=== PATIENT | male | born 1960 | race Caucasian/White ===

== ENCOUNTER 2018-05-31 12:12 | Inpatient (IN) | payer MEDICAID ==
[2018-05-31] MEDS ORDERED: Sodium Chloride 0.9% 1,000 ML IV STA (13:54)
--- NOTE | 2018-05-31 13:58 | ED PDOC ---
Arrival/HPI - General Chief Complaint: Back Pain Time Seen by Provider: 05/31/18 13:17 Historian: Patient - History of Present Illness Narrative History of Present Illness (Text): 05/31/18 13:58 57 year old male, with no significant past medical history, presents to the emergency department complaining of back pain for the past 5 days. Patient states he took some pain medication which relieved the pain, but it came back and worsened yesterday. He notes secondary abdominal pain and chest discomfort. Patient denies fevers, chills, headache, dizziness, shortness of breath, dyspnea on exertion, cough, nausea, vomiting, diarrhea, neck pain, or any other complaint. PMD: Dr. Lawson Time/Duration: < week Symptom Onset: Gradual Symptom Course: Worsening Activities at Onset: Light Context: Home Past Medical History - Provider Review Nursing Documentation Reviewed: Yes - Infectious Disease Hx of Infectious Diseases: None - Genitourinary/Gynecological Hx Genitourinary Disorders: No - Psychiatric Hx Substance Use: No - Anesthesia Hx Anesthesia: No Hx Anesthesia Reactions: No Hx Malignant Hyperthermia: No Family/Social History - Physician Review Nursing Documentation Reviewed: Yes Family/Social History: No Known Family HX Smoking Status: Never Smoked Hx Alcohol Use: No Hx Substance Use: No Allergies/Home Meds Allergies/Adverse Reactions: Allergies No Known Allergies Allergy (Verified 05/31/18 13:05) Home Medications: Home Meds Medication Instructions Recorded Confirmed No Known Home Med 05/31/18 05/31/18 Review of Systems - Physician Review All systems were reviewed & negative as marked: Yes - Review of Systems Constitutional: absent: Fevers Respiratory: absent: SOB Physical Exam - Physical Exam Narrative Physical Exam (Text): 05/31/18 14:01 Constitutional: No acute distress. Head: Normocephalic. Atraumatic. Eyes: PERRL. ENT: Moist mucous membranes. Neck: Supple. Cardiovascular: Regular rate. Chest: No tenderness. Respiratory: Clear to auscultation bilaterally. GI: Soft. Nontender. Nondistended. Back: No CVA tenderness. no midline tenderness. Musculoskeletal: No tenderness or swelling of extremities. Skin: No rash. Neurologic: Alert, no focal deficit. Vital Signs Reviewed: Yes Vital Signs Temp Pulse Resp BP Pulse Ox 05/31/18 12:59 97.9 F 73 18 165/96 H 98 Temperature: Afebrile Blood Pressure: Hypertensive Pulse: Regular Respiratory Rate: Normal Appearance: Positive for: Well-Appearing, Non-Toxic, Comfortable Pain Distress: None Mental Status: Positive for: Alert and Oriented X 3 Medical Decision Making ED Course and Treatment: 05/31/18 14:02 Impression: 57 year old male who presents to the emergency department complaining of back pain. Plan: -- Abdomen and Pelvis CT -- EKG -- Labs -- IV fluids -- Toradol -- Urine Culture -- Urinalysis -- Reassess and disposition Progress Notes: Pending CT. Signed out to ED night team. - Lab Interpretations I have reviewed the lab results: Yes - RAD Interpretation Radiology Orders: 05/31/18 13:54 ABD & PELVIS IV CONTRAST ONLY [CT] Stat Wind Turbine Engineer: Radiologist - EKG Interpretation Interpreted by ED Physician: Yes Type: 12 lead EKG - Medication Orders Current Medication Orders: Sodium Chloride (Sodium Chloride 0.9%) 1,000 mls @ 999 mls/hr IV .Q1H1M STA Stop: 05/31/18 14:54 Discontinued Medications Ketorolac Tromethamine (Toradol) 30 mg IVP STAT STA Stop: 05/31/18 13:55 - Scribe Statement The provider has reviewed the documentation as recorded by the Sally Joseph Provider Scribe Attestation: All medical record entries made by the Scribe were at my direction and personally dictated by me. I have reviewed the chart and agree that the record accurately reflects my personal performance of the history, physical exam, medical decision making, and the department course for this patient. I have also personally directed, reviewed, and agree with the discharge instructions and disposition. Disposition/Present on Arrival - Present on Arrival Any Indicators Present on Arrival: No History of DVT/PE: No History of Uncontrolled Diabetes: No Urinary Catheter: No History of Decub. Ulcer: No History Surgical Site Infection Following: None - Disposition Have Diagnosis and Disposition been Completed?: No Diagnosis: Abdominal pain Disposition Time: 18:51 Condition: STABLE Forms: [employer] (Romansh)
[2018-05-31 15:02] LABS: URINE BILIRUBIN NEGATIVE (NEGATIVE); URINE BLOOD NEGATIVE (NEGATIVE); URINE GLUCOSE (UA) NEGATIVE (NEGATIVE); URINE LEUKOCYTE ESTERASE NEGATIVE Leu/uL (NEGATIVE); URINE PROTEIN NEGATIVE mg/dL (<30 mg/dL); URINE UROBILINOGEN 0.2 E.U./dL (<1 E.U./dL)
[2018-05-31 15:03] LABS: BASO # 0.03 K/mm3 (0.0-2.0); BASO % 0.3 % (0.0-3.0); EOS # 0.2 (0.0-0.7); EOS % 1.3 % (1.5-5.0); HEMOGLOBIN 16.1 g/dL (14.0-18.0); LYMPH # 1.8 (1.2-3.4); MEAN CELL VOLUME 88.7 fl (80.0-105.0); MEAN CORPUSCULAR HEMOGLOBIN 29.9 pg (25.0-35.0); MEAN CORPUSCULAR HGB CONC 33.8 g/dl (31.0-37.0); MEAN PLATELET VOLUME 11.2 fl (7.0-11.0); MONO # 0.8 (0.1-0.6); MONO % 6.7 % (1.0-6.0); RBC 5.38 10^6/uL (3.5-6.1); RED CELL DISTRIBUTION WIDTH 13.8 % (11.5-14.5); WHITE BLOOD COUNT 11.3 10^3/uL (4.5-11.0)
[2018-05-31 15:04] LABS: URINE APPEARANCE CLEAR (CLEAR); URINE COLOR YELLOW (YELLOW)
[2018-05-31 15:51] LABS: ALB/GLOB RATIO 1.3 (1.1-1.8); ALT/SGPT 23 U/L (7-56); AST/SGOT 23 U/L (17-59); BLOOD UREA NITROGEN 13 mg/dL (7-21); CALCIUM 9.5 mg/dL (8.4-10.5); GFR NON-AFRICAN AMERICAN > 60; LIPASE 54 U/L (23-300)
[2018-05-31 16:02] LABS: TROPONIN I < 0.01 ng/mL
[2018-05-31] MEDS ORDERED: Iohexol 350 MG/100 ML VIAL ONE (17:00)
--- NOTE | 2018-05-31 19:36 | ED PDOC ---
Physical Exam Vital Signs Reviewed: Yes Vital Signs Temp Pulse Resp BP Pulse Ox 05/31/18 14:52 78 18 155/88 H 98 05/31/18 12:59 97.9 F 73 18 165/96 H 98 Temperature: Afebrile Blood Pressure: Normal Pulse: Regular Respiratory Rate: Normal Appearance: Positive for: Well-Appearing, Non-Toxic, Comfortable Pain Distress: None Mental Status: Positive for: Alert and Oriented X 3 - Systems Exam Head: Present: Atraumatic, Normocephalic Pupils: Present: PERRL Extroacular Muscles: Present: EOMI Conjunctiva: Present: Normal Mouth: Present: Moist Mucous Membranes Neck: No: MIDLINE TENDERNESS Respiratory/Chest: Present: Clear to Auscultation, Good Air Exchange. No: Respiratory Distress, Accessory Muscle Use Cardiovascular: Present: Regular Rate and Rhythm, Normal S1, S2. No: Murmurs Abdomen: Present: Tenderness (upper abdomen). No: Distention, Peritoneal Signs Back: Present: Normal Inspection Upper Extremity: Present: Normal Inspection. No: Cyanosis, Edema Lower Extremity: Present: Normal Inspection. No: Edema Neurological: Present: GCS=15, Speech Normal Skin: Present: Warm, Dry, Normal Color. No: Rashes Psychiatric: Present: Alert, Oriented x 3, Normal Insight, Normal Concentration Medical Decision Making ED Course and Treatment: 05/31/18 19:34 Case endorsed to me by for pending CT abd/pelvis, reassessment and final disposition. Patient is a 57 year old male who presented to the emergency department earlier today complaining of back pain. Patient is currently resting in bed in no acute distress. Patient have no new medical complaints. 05/31/18 22:02 CT Abdomen and Pelvis: LUNG BASES: The lung bases appear clear. No pleural effusions are seen. LIVER: There is hepatomegaly. The liver measured an estimated 20.1 cm in the midclavicular line. There is also suggestion of mild associated hepatic steatosis. GALLBLADDER AND BILE DUCTS: There is apparent subtle 2.0 cm partially calcified cholelith within the gallbladder neck region. Additionally, subtle pericholecystic edema is noted. These findings are thought compatible with acute cholecystitis .No biliary ductal dilatation is evident. PANCREAS: Unremarkable. SPLEEN: Unremarkable. ADRENAL GLANDS: Unremarkable. KIDNEYS, URETERS, AND BLADDER: Both kidneys are normal in size and position. A 2.5 cm cyst is seen in the anterior mid right renal pole. There is no hydronephrosis or hydroureter. No urinary calculi are seen. The urinary bladder is normal in size and configuration. STOMACH AND BOWEL: No evidence of bowel obstruction. There is mild mucosal wall thickening and fluid filling of the lumen of the stomach and small intestinal tract thought compatible with gastritis and diffuse enteritis. Infectious or inflammatory etiologies are thought most likely. There is diverticulosis coli seen within the descending, sigmoid and rectosigmoid colon without evidence of acute diverticulitis. APPENDIX: No evidence of acute appendicitis on CT examination. PERITONEUM: No free fluid. No free air. Small bilateral inguinal hernias are present which each contain fat. LYMPH NODES: No lymphadenopathy is evident. REPRODUCTIVE: The seminal vesicles appeared normal and symmetrical in size. There is prostatic hypertrophy noted. The prostate gland measured 5.9 cm transversely. VASCULATURE: No evidence of abdominal aortic aneurysm. Minor atherosclerotic vascular plaquing is present. BONES: No aggressive appearing osseous lesion. No acute osseous pathology evident. IMPRESSION: 1. A solitary 2.0 cm partially calcified cholelith is seen in the gallbladder neck. 2. Pericholecystic edema. Findings compatible with acute cholecystitis. 3. Evidence of gastritis and diffuse enteritis. 4. Hepatomegaly with associated steatosis. 5. Diverticulosis coli of the left hemicolon. No acute diverticulitis. 6. Small bilateral inguinal hernias which each contain fat. 7. Prostatic hypertrophy. Electronically signed on May 31, 2018 9:38:42 PM EST by: Ricardo Quiles M.D., CHUNG Certified By ABR & CBC[employer] Fellowship Trained MRI and CT Specialist 05/31/18 22:09 Case discussed with medical scientific liaison and Dr. Goodman. Pt will be admitted to [facility] for cholecystitis under the hospitalist service. - Lab Interpretations Lab Results: Troponin I < 0.01 ng/mL 05/31/18 15:30 Total Bilirubin 0.4 mg/dL (0.2-1.3) 05/31/18 15:30 AST 23 U/L (17-59) 05/31/18 15:30 ALT 23 U/L (7-56) 05/31/18 15:30 Alkaline Phosphatase 85 U/L (38-126) 05/31/18 15:30 Total Protein 7.2 g/dL (5.8-8.3) 05/31/18 15:30 Albumin 4.0 g/dL (3.0-4.8) 05/31/18 15:30 Globulin 3.2 gm/dL 05/31/18 15:30 Albumin/Globulin Ratio 1.3 (1.1-1.8) 05/31/18 15:30 Lipase 54 U/L (23-300) 05/31/18 15:30 Urine Color Yellow (YELLOW) 05/31/18 14:40 Urine Appearance Clear (CLEAR) 05/31/18 14:40 Urine pH 6.0 (4.7-8.0) 05/31/18 14:40 Ur Specific [place] 1.025 (1.005-1.035) 05/31/18 14:40 Urine Protein Negative mg/dL (<30 mg/dL) 05/31/18 14:40 Urine Glucose (UA) Negative mg/dL (NEGATIVE) 05/31/18 14:40 Urine Ketones Negative mg/dL (NEGATIVE) 05/31/18 14:40 Urine Blood Negative (NEGATIVE) 05/31/18 14:40 Urine Nitrate Negative (NEGATIVE) 05/31/18 14:40 Urine Bilirubin Negative (NEGATIVE) 05/31/18 14:40 Urine Urobilinogen 0.2 E.U./dL (<1 E.U./dL) 05/31/18 14:40 Ur Leukocyte Esterase Negative Андрей/uL (NEGATIVE) 05/31/18 14:40 - RAD Interpretation Radiology Orders: 05/31/18 13:54 ABD & PELVIS IV CONTRAST ONLY [CT] Stat - Medication Orders Current Medication Orders: Discontinued Medications Sodium Chloride (Sodium Chloride 0.9%) 1,000 mls @ 999 mls/hr IV .Q1H1M STA Stop: 05/31/18 14:54 Last Admin: 05/31/18 14:44 Dose: 999 mls/hr eMAR Start Stop Document 05/31/18 14:44 EAR (Rec: 05/31/18 14:45 EAR [id number]) Intravenous Solution Start Date 05/31/18 Start Time 14:44 End Date 05/31/18 End time 15:50 Total Infusion Time 66 Ketorolac Tromethamine (Toradol) 30 mg IVP STAT STA Stop: 05/31/18 13:55 Last Admin: 05/31/18 14:47 Dose: 30 mg MAR Pain Assessment Document 05/31/18 14:47 EAR (Rec: 05/31/18 14:48 EAR [id number]) Pain Reassessment Is this a pain reassessment? Yes IVP Administration Document 05/31/18 14:47 EAR (Rec: 05/31/18 14:48 EAR [id number]) Charges for Administration # of IVP Administrations 1 - Scribe Statement The provider has reviewed the documentation as recorded by the Sally Day training with Dejuan. All medical record entries made by the Sally were at my direction and personally dictated by me. I have reviewed the chart and agree that the record accurately reflects my personal performance of the history, physical exam, medical decision making, and the department course for this patient. I have also personally directed, reviewed, and agree with the discharge instructions and disposition. Disposition/Present on Arrival - Present on Arrival Any Indicators Present on Arrival: No History of DVT/PE: No History of Uncontrolled Diabetes: No Urinary Catheter: No History of Decub. Ulcer: No History Surgical Site Infection Following: None - Disposition Have Diagnosis and Disposition been Completed?: Yes Diagnosis: Abdominal pain, Cholecystitis Disposition: HOSPITALIZED Disposition Time: 22:15 Patient Plan: Admission Patient Problems: Current Active Problems Problem Status Onset Abdominal pain Acute Condition: STABLE Forms: [employer] (Divehi)
[2018-05-31] MEDS ORDERED: metroNIDAZOLE IV 500 mg/100 ml 500 MG/100 ML BAG IV STA (22:02)
[2018-05-31] MEDS ORDERED: cefTRIAXone 1 gm 1 GM/100 ML BAG IV STA (22:02)
[2018-05-31] MEDS ORDERED: Morphine 2 mg/ml ISec IVP STA ×2 (22:09→23:09)
--- NOTE | 2018-05-31 23:59 | CP.PCM.CON ---
History of Present Illness - History of Present Illness History of Present Illness: General Surgery Consult note for Dr. Jordan Consulted for Cholecystitis Patient is a 57 M with no PMH who presents with RUQ pain radiating to back x 5-7 days. Patient otherwise denies any PEOPLES, n/v, f/c, stool changes, chest pain, SOB and dizziness. PMH: denies PSH: appendectomy (in childhood) Social: denies ETOH, smoking and illicit drugs All: nkda Review of Systems - Review of Systems All systems: reviewed and no additional remarkable complaints except (as per HPI) Past Patient History - Infectious Disease Hx of Infectious Diseases: None - Past Social History Smoking Status: Never Smoked - GENITOURINARY/GYNECOLOGICAL Hx Genitourinary Disorders: No - PSYCHIATRIC Hx Substance Use: No - ANESTHESIA Hx Anesthesia: No Hx Anesthesia Reactions: No Hx Malignant Hyperthermia: No Meds Allergies/Adverse Reactions: Allergies Allergy/AdvReac Type Severity Reaction Status Date / Time No Known Allergies Allergy Verified 05/31/18 13:05 - Medications Medications: Current Medications Metronidazole (Flagyl) 500 mg in 100 mls @ 100 mls/hr IVPB Q8 NANCI; Protocol Ceftriaxone Sodium (Rocephin 1 Gram Ivpb) 1 gm in 100 mls @ 100 mls/hr IVPB DAILY NANCI; Protocol Sodium Chloride (Sodium Chloride 0.9%) 1,000 mls @ 100 mls/hr IV .Q10H NANCI Morphine Sulfate (Morphine) 2 mg IVP Q6H PRN PRN Reason: Pain, severe (8-10) Ondansetron HCl (Zofran Inj) 4 mg IVP Q6H PRN PRN Reason: Nausea/Vomiting Pantoprazole Sodium (Protonix Inj) 40 mg IVP DAILY NANCI Physical Exam - Constitutional Appears: Well, Non-toxic, No Acute Distress - Head Exam Head Exam: ATRAUMATIC - Eye Exam Eye Exam: EOMI - ENT Exam ENT Exam: Mucous Membranes Moist - Respiratory Exam Respiratory Exam: NORMAL BREATHING PATTERN - Cardiovascular Exam Cardiovascular Exam: REGULAR RHYTHM - GI/Abdominal Exam GI & Abdominal Exam: Soft, Tenderness (RUQ). absent: Guarding - Extremities Exam Extremities exam: Negative for: calf tenderness - Neurological Exam Neurological exam: Alert, Oriented x3 - Psychiatric Exam Psychiatric exam: Normal Affect, Normal Mood - Skin Skin Exam: Dry, Intact, Normal Color, Warm Results - Vital Signs Recent Vital Signs: Last Vital Signs Temp 97.9 F 05/31/18 12:59 Pulse 78 05/31/18 14:52 Resp 18 05/31/18 14:52 BP 155/88 H 05/31/18 14:52 Pulse Ox 98 05/31/18 14:52 - Labs Result Diagrams: 06/02/18 06:10 06/02/18 06:10 Labs: Laboratory Results - last 24 hr 05/31/18 05/31/18 05/31/18 14:40 14:40 15:30 WBC 11.3 H RBC 5.38 Hgb 16.1 Hct 47.7 MCV 88.7 MCH 29.9 MCHC 33.8 RDW 13.8 Plt Count 258 MPV 11.2 H Neut % (Auto) 75.7 H Lymph % (Auto) 16.0 L [place] % (Auto) 6.7 H Eos % (Auto) 1.3 L Baso % (Auto) 0.3 Lymph # (Auto) 1.8 [place] # (Auto) 0.8 H Eos # (Auto) 0.2 Baso # (Auto) 0.03 Absolute Neuts (auto) 8.52 H Sodium 139 Potassium 4.4 Chloride 106 Carbon Dioxide 26 Anion Gap 12 BUN 13 Creatinine 0.8 Est GFR ( Amer) > 60 Est GFR (Non-Af Amer) > 60 Random Glucose 93 Calcium 9.5 Total Bilirubin 0.4 AST 23 ALT 23 Alkaline Phosphatase 85 Total Creatine Kinase 88 Troponin I < 0.01 Total Protein 7.2 Albumin 4.0 Globulin 3.2 Albumin/Globulin Ratio 1.3 Lipase 54 Urine Color Yellow Urine Appearance Clear Urine pH 6.0 Ur Specific [place] 1.025 Urine Protein Negative Urine Glucose (UA) Negative Urine Ketones Negative Urine Blood Negative Urine Nitrate Negative Urine Bilirubin Negative Urine Urobilinogen 0.2 Ur Leukocyte Esterase Negative Assessment & Plan - Assessment and Plan (Free Text) Assessment: 57 yr old male with cholelithiasis and acute cholecystitis Plan: IVF rocephin, flagyl pain control zofran SCD Abd US possible OR tomorrow for cholecystectomy will discuss with Dr. Julian Lombardo, PGY 1 - Date & Time Date: 06/01/18 Time: 23:35
[2018-06-01] MEDS: Sodium Chloride 0.9% 1,000 ML IV SCH ×2 (01:33→17:56)
--- NOTE | 2018-06-01 02:22 | CP.PCM.HP ---
<SanjeevwillkarlenePancho - Last Filed: 06/01/18 02:33> History of Present Illness - History of Present Illness History of Present Illness: PGY1 Hospitalist History and Physical Exam Note for Dr. Goodman This is a 57 year old Japanese speaking M with PMH of hyperlipidemia who presents [facility] with back pain x5 days. Patient states he took some pain medication which relieved the pain, but it came back and moved towards his chest and then moved towards his abdomen. The pain worsened yesterday. Patient also notes associated nausea, anorexia, and abdominal distention. ROS is otherwise unremarkable for fevers, chills, headache, dizziness, shortness of breath, dyspnea on exertion, cough, nausea, vomiting, diarrhea, neck pain, or any other complaint. PMH: Hyperlipidemia PSH: Appendectomy Family Hx: Father (hx HTN, DM, sudden 2/2 unknown cause); Mother: ; hx HTN Social Hx Denies ETOH. Admits to Tobacco 1/2 pack per day x30 years. No recreational drugs Medications: None Allergies: NKDA PMD: Dr. Lawson Present on Admission - Present on Admission Any Indicators Present on Admission: No History of DVT/PE: No History of Uncontrolled Diabetes: No Urinary Catheter: No Decubitus Ulcer Present: No Review of Systems - Review of Systems All systems: reviewed and no additional remarkable complaints except (as mentioned in HPI) Past Patient History - Infectious Disease Hx of Infectious Diseases: None - Past Social History Smoking Status: Heavy Smoker > 10 Cigarettes Daily - CARDIAC Hx Cardiac Disorders: Yes Hx Hypercholesterolemia: Yes - MUSCULOSKELETAL/RHEUMATOLOGICAL Hx Falls: No - GENITOURINARY/GYNECOLOGICAL Hx Genitourinary Disorders: No - PSYCHIATRIC Hx Substance Use: No - SURGICAL HISTORY Hx Surgeries: Yes Hx Cholecystectomy: Yes - ANESTHESIA Hx Anesthesia: No Hx Anesthesia Reactions: No Hx Malignant Hyperthermia: No Meds Allergies/Adverse Reactions: Allergies Allergy/AdvReac Type Severity Reaction Status Date / Time No Known Allergies Allergy Verified 05/31/18 13:05 Physical Exam - Additional Findings Additional findings: - Constitutional Appears: Well, Non-toxic, No Acute Distress - Head Exam Head Exam: ATRAUMATIC - Eye Exam Eye Exam: EOMI - ENT Exam ENT Exam: Mucous Membranes Moist - Respiratory Exam Respiratory Exam: NORMAL BREATHING PATTERN - Cardiovascular Exam Cardiovascular Exam: REGULAR RHYTHM - GI/Abdominal Exam GI & Abdominal Exam: Soft, Tenderness (RUQ). absent: Guarding - Extremities Exam Extremities exam: Negative for: calf tenderness - Neurological Exam Neurological exam: Alert, Oriented x3 - Psychiatric Exam Psychiatric exam: Normal Affect, Normal Mood - Skin Skin Exam: Dry, Intact, Normal Color, Warm Results - Vital Signs Recent Vital Signs: Last Vital Signs Temp 97.9 F 05/31/18 12:59 Pulse 80 05/31/18 22:30 Resp 20 06/01/18 01:39 BP 132/82 05/31/18 22:30 Pulse Ox 98 05/31/18 22:30 - Labs Result Diagrams: 05/31/18 14:40 05/31/18 15:30 Labs: Laboratory Results - last 24 hr 05/31/18 05/31/18 05/31/18 14:40 14:40 15:30 WBC 11.3 H RBC 5.38 Hgb 16.1 Hct 47.7 MCV 88.7 MCH 29.9 MCHC 33.8 RDW 13.8 Plt Count 258 MPV 11.2 H Neut % (Auto) 75.7 H Lymph % (Auto) 16.0 L [place] % (Auto) 6.7 H Eos % (Auto) 1.3 L Baso % (Auto) 0.3 Lymph # (Auto) 1.8 [place] # (Auto) 0.8 H Eos # (Auto) 0.2 Baso # (Auto) 0.03 Absolute Neuts (auto) 8.52 H Sodium 139 Potassium 4.4 Chloride 106 Carbon Dioxide 26 Anion Gap 12 BUN 13 Creatinine 0.8 Est GFR ( Amer) > 60 Est GFR (Non-Af Amer) > 60 Random Glucose 93 Calcium 9.5 Total Bilirubin 0.4 AST 23 ALT 23 Alkaline Phosphatase 85 Total Creatine Kinase 88 Troponin I < 0.01 Total Protein 7.2 Albumin 4.0 Globulin 3.2 Albumin/Globulin Ratio 1.3 Lipase 54 Urine Color Yellow Urine Appearance Clear Urine pH 6.0 Ur Specific [place] 1.025 Urine Protein Negative Urine Glucose (UA) Negative Urine Ketones Negative Urine Blood Negative Urine Nitrate Negative Urine Bilirubin Negative Urine Urobilinogen 0.2 Ur Leukocyte Esterase Negative Assessment & Plan - Assessment and Plan (Free Text) Assessment: This is a 57 year old Japanese speaking M with PMH of hyperlipidemia who presents to [facility] with back pain x5 days. Patient states he took some pain medication which relieved the pain, but it came back and moved towards his chest and then moved towards his abdomen. Abdominal Pain / Back pain likely secondary to Cholecystitis - CT ABD/PELVIS: IMPRESSION: 1. A solitary 2.0 cm partially calcified cholelith is seen in the gallbladder neck. 2. Pericholecystic edema. Findings compatible with acute cholecystitis. 3. Evidence of gastritis and diffuse enteritis. 4. Hepatomegaly with associated steatosis. 5. Diverticulosis coli of the left hemicolon. No acute diverticulitis. 6. Small bilateral inguinal hernias which each contain fat. 7. Prostatic hypertrophy. - CXR f/u report - EKG obtained unremarkable for T wave abnormalities - Leukocytosis (11.3) - General Surgery (Dr. Jordan) consulted; recommendations appreciated - NPO - Morphine IVP 2mg Q6 PRN for severe pain - Zofran PRN for nausea - IVF NS @100mls/hr - Abx: Rocephin, Flagyl - F/U blood cultures - AM labs (CBC, CMP, Mg, Phos) PPx: - Diet: NPO - GI: Protonix - DVT: SCD Patient seen and case discussed with Dr. Maxine Duncan PGY1 <Cole Goodman - Last Filed: 06/01/18 06:51> Results - Vital Signs Recent Vital Signs: Last Vital Signs Temp 97.9 F 05/31/18 12:59 Pulse 80 05/31/18 22:30 Resp 20 06/01/18 01:39 BP 132/82 05/31/18 22:30 Pulse Ox 98 05/31/18 22:30 - Labs Result Diagrams: 05/31/18 14:40 05/31/18 15:30 Labs: Laboratory Results - last 24 hr 05/31/18 05/31/18 05/31/18 14:40 14:40 15:30 WBC 11.3 H RBC 5.38 Hgb 16.1 Hct 47.7 MCV 88.7 MCH 29.9 MCHC 33.8 RDW 13.8 Plt Count 258 MPV 11.2 H Neut % (Auto) 75.7 H Lymph % (Auto) 16.0 L [place] % (Auto) 6.7 H Eos % (Auto) 1.3 L Baso % (Auto) 0.3 Lymph # (Auto) 1.8 [place] # (Auto) 0.8 H Eos # (Auto) 0.2 Baso # (Auto) 0.03 Absolute Neuts (auto) 8.52 H Sodium 139 Potassium 4.4 Chloride 106 Carbon Dioxide 26 Anion Gap 12 BUN 13 Creatinine 0.8 Est GFR ( Amer) > 60 Est GFR (Non-Af Amer) > 60 Random Glucose 93 Calcium 9.5 Total Bilirubin 0.4 AST 23 ALT 23 Alkaline Phosphatase 85 Total Creatine Kinase 88 Troponin I < 0.01 Total Protein 7.2 Albumin 4.0 Globulin 3.2 Albumin/Globulin Ratio 1.3 Lipase 54 Urine Color Yellow Urine Appearance Clear Urine pH 6.0 Ur Specific [place] 1.025 Urine Protein Negative Urine Glucose (UA) Negative Urine Ketones Negative Urine Blood Negative Urine Nitrate Negative Urine Bilirubin Negative Urine Urobilinogen 0.2 Ur Leukocyte Esterase Negative Attending/Attestation - Attestation I have personally seen and examined this patient.: Yes I have fully participated in the care of the patient.: Yes I have reviewed all pertinent clinical information: Yes Notes (Text): 06/01/18 06:51 Seen and examined. Discussed with resident. Agree with note. Pt. also C/O GERD like symptoms, Protonix will be added.
[2018-06-01] MEDS: metroNIDAZOLE IV 500 mg/100 ml 500 MG/100 ML BAG IVPB SCH ×3 (05:08→21:23)
[2018-06-01 07:22] LABS: BASO # 0.02 K/mm3 (0.0-2.0); BASO % 0.2 % (0.0-3.0); EOS # 0.2 (0.0-0.7); EOS % 1.6 % (1.5-5.0); HEMOGLOBIN 14.3 g/dL (14.0-18.0); LYMPH # 1.7 (1.2-3.4); LYMPH % 17.2 % (22.0-35.0); MEAN CELL VOLUME 87.7 fl (80.0-105.0); MEAN CORPUSCULAR HEMOGLOBIN 28.8 pg (25.0-35.0); MEAN CORPUSCULAR HGB CONC 32.8 g/dl (31.0-37.0); MEAN PLATELET VOLUME 10.9 fl (7.0-11.0); MONO # 0.9 (0.1-0.6); MONO % 8.8 % (1.0-6.0); RBC 4.97 10^6/uL (3.5-6.1); RED CELL DISTRIBUTION WIDTH 13.9 % (11.5-14.5); WHITE BLOOD COUNT 9.7 10^3/uL (4.5-11.0)
[2018-06-01 07:37] LABS: INR 1.14; PROTHROMBIN TIME 12.9 SECONDS (9.4-12.5)
[2018-06-01 07:45] LABS: ALB/GLOB RATIO 1.1 (1.1-1.8); ALBUMIN 3.7 g/dL (3.0-4.8); ALT/SGPT 20 U/L (7-56); AST/SGOT 31 U/L (17-59); BLOOD UREA NITROGEN 10 mg/dL (7-21); CALCIUM 8.8 mg/dL (8.4-10.5); GFR NON-AFRICAN AMERICAN > 60
--- NOTE | 2018-06-01 08:26 | RAD ---
Date of service: 06/01/2018 HISTORY: preoperative COMPARISON: None available. FINDINGS: LUNGS: No active pulmonary disease. PLEURA: No significant pleural effusion identified, no pneumothorax apparent. CARDIOVASCULAR: No aortic atherosclerotic calcification present. Normal cardiac size. No pulmonary vascular congestion. OSSEOUS STRUCTURES: No significant abnormalities. VISUALIZED UPPER ABDOMEN: Normal. OTHER FINDINGS: None. IMPRESSION: No acute cardiopulmonary disease appreciated.
--- NOTE | 2018-06-01 08:58 | CT ---
Date of service: 05/31/2018 PROCEDURE: CT Abdomen and Pelvis with contrast HISTORY: abd pain COMPARISON: None. TECHNIQUE: Contrast dose: Radiation dose: Total exam DLP = 874.26 mGy-cm. This CT exam was performed using one or more of the following dose reduction techniques: Automated exposure control, adjustment of the mA and/or kV according to patient size, and/or use of iterative reconstruction technique. FINDINGS: LOWER THORAX: Unremarkable. LIVER: Unremarkable. No gross lesion or ductal dilatation. GALLBLADDER AND BILE DUCTS: 2 cm stone in the neck of the gallbladder. Pericholecystic fluid consistent with cholecystitis PANCREAS: Unremarkable. No gross lesion or ductal dilatation. SPLEEN: Unremarkable. ADRENALS: Unremarkable. No mass. KIDNEYS AND URETERS: Unremarkable. No hydronephrosis. No solid mass. VASCULATURE: Unremarkable. No aortic aneurysm. No aortic atherosclerotic calcification or mural plaque present. BOWEL: Unremarkable. No obstruction. No gross mural thickening. Diverticulosis of the sigmoid colon without evidence of diverticulitis APPENDIX: Normal appendix. PERITONEUM: Unremarkable. No free fluid. No free air. LYMPH NODES: Unremarkable. No enlarged lymph nodes. BLADDER: Unremarkable. REPRODUCTIVE: Unremarkable. BONES: No acute fracture. OTHER FINDINGS: The report concurs with the preliminary [facility] report IMPRESSION: 2 cm stone in the neck of the gallbladder. Pericholecystic fluid consistent with cholecystitis
--- NOTE | 2018-06-01 09:28 | CP.PCM.PN ---
Subjective - Date & Time of Evaluation Date of Evaluation: 06/01/18 Time of Evaluation: 08:00 - Subjective Subjective: Indra Flores, PGY-[address] Jordan Patient seen and evaluated at bedside. No acute events reported overnight since admission. Reports RUQ abdominal pain but denies fevers, chills, N/V, constipation, diarrhea. Objective - Vital Signs/Intake and Output Vital Signs (last 24 hours): Temp Pulse Resp BP Pulse Ox 99.2 F 79 22 133/73 96 06/01/18 06:00 06/01/18 06:00 06/01/18 06:00 06/01/18 06:00 06/01/18 06:00 Intake and Output: 06/01/18 06/01/18 06:59 18:59 Intake Total 500 Balance 500 - Medications Medications: Current Medications Metronidazole (Flagyl) 500 mg in 100 mls @ 100 mls/hr IVPB Q8 [facility]; Protocol Last Admin: 06/01/18 05:08 Dose: 100 mls/hr Ceftriaxone Sodium (Rocephin 1 Gram Ivpb) 1 gm in 100 mls @ 100 mls/hr IVPB DAILY [facility]; Protocol Sodium Chloride (Sodium Chloride 0.9%) 1,000 mls @ 100 mls/hr IV .Q10H [facility] Last Admin: 06/01/18 01:33 Dose: 100 mls/hr Morphine Sulfate (Morphine) 2 mg IVP Q6H PRN PRN Reason: Pain, severe (8-10) Ondansetron HCl (Zofran Inj) 4 mg IVP Q6H PRN PRN Reason: Nausea/Vomiting Pantoprazole Sodium (Protonix Inj) 40 mg IVP DAILY [facility] - Labs Labs: 06/01/18 06:50 06/01/18 06:50 PT 12.9 SECONDS (9.4-12.5) H 06/01/18 06:50 INR 1.14 06/01/18 06:50 APTT 34.0 Seconds (26.9-38.3) 06/01/18 06:50 - Additional Findings Additional findings: - Constitutional Appears: Well, Non-toxic, No Acute Distress - Head Exam Head Exam: ATRAUMATIC - Eye Exam Eye Exam: EOMI. Nonicteric sclera. - ENT Exam ENT Exam: Mucous Membranes Moist - Respiratory Exam Respiratory Exam: NORMAL BREATHING PATTERN - Cardiovascular Exam Cardiovascular Exam: REGULAR RHYTHM - GI/Abdominal Exam GI & Abdominal Exam: Soft, Tenderness (RUQ). Equivocal Dobbs's sign with mild tenderness elicited. absent: Guarding - Extremities Exam Extremities exam: Negative for: calf tenderness - Neurological Exam Neurological exam: Alert, Oriented x3 - Psychiatric Exam Psychiatric exam: Normal Affect, Normal Mood - Skin Skin Exam: Dry, Intact, Normal Color, Warm. No juandice Assessment and Plan - Assessment and Plan (Free Text) Assessment: 57 yr old male with cholelithiasis and acute cholecystitis Plan: - IVF, NPO - ABx - F/u final U/S report - Pain control - Zofran - SCD - Lap Madai likely tomorrow Patient seen and plan discussed with Dr. Julian Flores, PGY 1
[2018-06-01] MEDS: Morphine 2 mg/ml ISec IVP PRN ×2 (09:55→21:22)
--- NOTE | 2018-06-01 11:01 | US ---
Date of service: 06/01/2018 HISTORY: RUQ pain COMPARISON: None. TECHNIQUE: Sonographic evaluation of the abdomen. FINDINGS: LIVER: Measures 20 cm. Increased echogenicity of the liver parenchyma. No mass. No intrahepatic bile duct dilatation. GALLBLADDER: There is a large stone in the neck of the gallbladder measuring 2.7 cm in length. There thickening of the gallbladder wall measuring 6 mm. COMMON BILE DUCT: Measures 3.3 mm. No stones. No dilatation. PANCREAS: Not well visualized RIGHT KIDNEY: Measures 10.0 x 4.8 x 6.5cm. Normal echogenicity. No calculus, mass, or hydronephrosis. 2.2 cm cyst LEFT KIDNEY: Measures 11.7 x 4.7 x 6.0cm. Normal echogenicity. No calculus, mass, or hydronephrosis. SPLEEN: Normal in size and contour. No mass. 10.8 x 4.3 x 4.0 cm AORTA: Not visualized IVC: Not visualized OTHER FINDINGS: The report concurs with the preliminary [facility] report IMPRESSION: There is a large stone in the neck of the gallbladder measuring 2.7 cm in length. There thickening of the gallbladder wall measuring 6 mm. Fatty infiltration of the liver
[2018-06-01] MEDS: cefTRIAXone 1 gm 1 GM/100 ML BAG IVPB SCH (11:31)
[2018-06-02] MEDS: Sodium Chloride 0.9% 1,000 ML IV SCH (05:07)
[2018-06-02] MEDS: metroNIDAZOLE IV 500 mg/100 ml 500 MG/100 ML BAG IVPB SCH ×3 (05:08→23:28)
[2018-06-02 06:49] LABS: BASO # 0.02 K/mm3 (0.0-2.0); BASO % 0.2 % (0.0-3.0); EOS # 0.1 (0.0-0.7); EOS % 1.2 % (1.5-5.0); HEMOGLOBIN 13.9 g/dL (14.0-18.0); INR 1.27; LYMPH # 2.2 (1.2-3.4); MEAN CELL VOLUME 88.1 fl (80.0-105.0); MEAN CORPUSCULAR HEMOGLOBIN 29.1 pg (25.0-35.0); MEAN CORPUSCULAR HGB CONC 33.1 g/dl (31.0-37.0); MEAN PLATELET VOLUME 10.8 fl (7.0-11.0); MONO # 0.9 (0.1-0.6); MONO % 9.9 % (1.0-6.0); PROTHROMBIN TIME 14.4 SECONDS (9.4-12.5); RBC 4.77 10^6/uL (3.5-6.1); WHITE BLOOD COUNT 9.3 10^3/uL (4.5-11.0)
--- NOTE | 2018-06-02 07:15 | CP.PCM.PN ---
<Almaz Valencia L - Last Filed: 06/02/18 16:27> Subjective - Date & Time of Evaluation Date of Evaluation: 06/02/18 Time of Evaluation: 07:11 - Subjective Subjective: Resident Progress Note for Hospitalist Service Patient examined at bedside. No acute events overnight. Patient admits to abdominal pain this morning unchanged from prior. Patient now s/p laparoscopic converted to open subtotal cholecystectomy. Denies fevers, chills, nausea, vomiting, chest pain, shortness of breath. Objective - Vital Signs/Intake and Output Vital Signs (last 24 hours): Temp Pulse Resp BP Pulse Ox 98.2 F 75 18 129/61 98 06/01/18 21:43 06/01/18 21:43 06/01/18 21:43 06/01/18 21:43 06/01/18 21:43 Intake and Output: 06/02/18 06/02/18 06:59 18:59 Intake Total 480 Output Total 650 Balance -170 - Medications Medications: Current Medications Metronidazole (Flagyl) 500 mg in 100 mls @ 100 mls/hr IVPB Q8 [facility]; Protocol Last Admin: 06/02/18 05:08 Dose: 100 mls/hr Ceftriaxone Sodium (Rocephin 1 Gram Ivpb) 1 gm in 100 mls @ 100 mls/hr IVPB DAILY [facility]; Protocol Last Admin: 06/01/18 11:31 Dose: 100 mls/hr Sodium Chloride (Sodium Chloride 0.9%) 1,000 mls @ 100 mls/hr IV .Q10H [facility] Last Admin: 06/02/18 05:07 Dose: 100 mls/hr Morphine Sulfate (Morphine) 2 mg IVP Q6H PRN PRN Reason: Pain, severe (8-10) Last Admin: 06/01/18 21:22 Dose: 2 mg Nicotine (Nicoderm Cq) 1 patch TD DAILY [facility] Last Admin: 06/01/18 14:42 Dose: 1 patch Ondansetron HCl (Zofran Inj) 4 mg IVP Q6H PRN PRN Reason: Nausea/Vomiting Pantoprazole Sodium (Protonix Inj) 40 mg IVP DAILY [facility] Last Admin: 06/01/18 09:55 Dose: 40 mg - Labs Labs: 06/02/18 06:10 06/01/18 06:50 PT 14.4 SECONDS (9.4-12.5) H 06/02/18 06:10 INR 1.27 06/02/18 06:10 APTT 34.0 Seconds (26.9-38.3) 06/01/18 06:50 - Constitutional Appears: Well, Non-toxic, No Acute Distress - Head Exam Head Exam: ATRAUMATIC, NORMOCEPHALIC - Eye Exam Eye Exam: EOMI, Normal Appearance - ENT Exam ENT Exam: Mucous Membranes Moist - Respiratory Exam Respiratory Exam: NORMAL BREATHING PATTERN, Clear to Auscultation Bilateral. absent: Wheezes, Ronchi, Respiratory Distress - Cardiovascular Exam Cardiovascular Exam: REGULAR RHYTHM, +S1 and +S2 - GI/Abdominal Exam GI & Abdominal Exam: Soft, Tenderness. absent: Guarding, Distended, Rigid, Rebound Tenderness - Extremities Exam Extremities exam: Normal Inspection. Negative for: calf tenderness, pedal edema - Neurological Exam Neurological exam: Alert, Oriented x3 - Psychiatric Exam Psychiatric exam: Normal Affect, Normal Mood - Skin Skin Exam: Dry, Intact, Normal Color, Warm Assessment and Plan - Assessment and Plan (Free Text) Assessment: Patient is a 57 year old male with past medical history of hyperlipidemia presenting with abdominal pain and admitted for management of acute cholecystitis, now s/p subtotal cholecystectomy. Plan: Cholecystitis - s/p laparoscopic converted to open subtotal cholecystectomy - CTAP shows 2.0 cm partially calcified cholelith in gallbladder neck, pericholecystic edema - leukocytosis trending down, afebrile - BCx neg x2 - advance diet as tolerated - Dilaudid, Percocet PRN - Zofran PRN - IVF LR @ 100 ccs/hr Hypokalemia - monitor and replete PRN Tobacco abuse - nicotine patch - cessation counseling PPX - SCDs, Heparin SC, Protonix Case reviewed with Dr. Christiano Valencia PGY-1 <Gabriella Alvarado - Last Filed: 06/03/18 14:45> Objective - Vital Signs/Intake and Output Vital Signs (last 24 hours): Temp Pulse Resp BP Pulse Ox 98.5 F 75 12 109/60 97 06/02/18 15:22 06/02/18 15:22 06/02/18 15:22 06/02/18 15:22 06/02/18 15:22 Intake and Output: 06/02/18 06/02/18 06:59 18:59 Intake Total 480 200 Output Total 650 Balance -170 200 - Medications Medications: Current Medications Heparin Sodium (Porcine) (Heparin) 5,000 units SC Q8 [facility]; Protocol Hydromorphone HCl (Dilaudid) 0.5 mg IVP Q4H PRN PRN Reason: Pain, severe (8-10) Metronidazole (Flagyl) 500 mg in 100 mls @ 100 mls/hr IVPB Q8 [facility]; Protocol Last Admin: 06/02/18 11:30 Dose: 100 mls/hr Ceftriaxone Sodium (Rocephin 1 Gram Ivpb) 1 gm in 100 mls @ 100 mls/hr IVPB DAILY [facility]; Protocol Last Admin: 06/02/18 11:17 Dose: 100 mls Lactated Ringer's (Lactated Ringer's) 1,000 mls @ 100 mls/hr IV .Q10H [facility] Last Admin: 06/02/18 08:58 Dose: 100 mls/hr Nicotine (Nicoderm Cq) 1 patch TD DAILY [facility] Last Admin: 06/01/18 14:42 Dose: 1 patch Ondansetron HCl (Zofran Inj) 4 mg IVP Q6H PRN PRN Reason: Nausea/Vomiting Oxycodone/Acetaminophen (Percocet 5/325 Mg Tab) 1 tab PO Q4H PRN PRN Reason: Pain, moderate (4-7) Stop: 06/05/18 14:21 Pantoprazole Sodium (Protonix Inj) 40 mg IVP DAILY [facility] Last Admin: 06/01/18 09:55 Dose: 40 mg - Labs Labs: 06/02/18 06:10 06/02/18 06:10 PT 14.4 SECONDS (9.4-12.5) H 06/02/18 06:10 INR 1.27 06/02/18 06:10 APTT 34.0 Seconds (26.9-38.3) 06/01/18 06:50 Attending/Attestation - Attestation I have personally seen and examined this patient.: Yes I have fully participated in the care of the patient.: Yes I have reviewed all pertinent clinical information, including history, physical exam and plan: Yes Notes (Text): 06/02/18 17:07 Attending note; Patient seen and examined with resident. Patient's son by the bedside. s/p open cholecytectomy. not in acute distress. Patient is a 57 year old male with past medical history of hyperlipidemia presenting with abdominal pain and admitted for management of acute cholecystitis, now s/p subtotal cholecystectomy. 1. S/p Open cholecystectomy with SEAN drain. serosanguineous fluid in the drain. continue IV rocephin and flagyl. Monitor closely. 2. pain management with IV dilaudid. 3. GI/DVT prophylaxis. 4. Active smoking: smoking cessation is strongly advised. On nicoderm patch. upon discharge the patient will follow up with PMD DR. Lawson.
[2018-06-02 07:17] LABS: ALB/GLOB RATIO 1.1 (1.1-1.8); ALBUMIN 3.6 g/dL (3.0-4.8); ALT/SGPT 18 U/L (7-56); AST/SGOT 21 U/L (17-59); BLOOD UREA NITROGEN 11 mg/dL (7-21); CALCIUM 8.8 mg/dL (8.4-10.5); GFR NON-AFRICAN AMERICAN > 60
[2018-06-02] MEDS: Morphine 2 mg/ml ISec IVP PRN (07:51)
[2018-06-02] MEDS: Lactated Ringer's 1,000 ML IV SCH ×2 (08:58→17:56)
[2018-06-02] MEDS ORDERED: Propofol 10 mg/ml Inj (20 ML) ONE (11:03)
[2018-06-02] MEDS ORDERED: Rocuronium 10 mg/ml (5 ml) ONE ×2 (11:03→12:08)
[2018-06-02] MEDS ORDERED: Midazolam 2 MG/2 ML VIAL ONE (11:03)
[2018-06-02] MEDS ORDERED: Succinylcholine 200 mg/10 ml Inj IV ONE (11:04)
[2018-06-02] MEDS ORDERED: metroNIDAZOLE IV 500 mg/100 ml 500 MG/100 ML BAG ONE (11:11)
[2018-06-02] MEDS ORDERED: Iohexol 240 (50 ml) ONE (11:11)
[2018-06-02] MEDS ORDERED: Bupivacaine 0.5% 50 ML IJ ONE (11:11)
[2018-06-02] MEDS: cefTRIAXone 1 gm 1 GM/100 ML BAG IVPB SCH (11:17)
[2018-06-02] MEDS ORDERED: Sevoflurane - Inhalation Anesthetic Liq (250 ml) ONE (11:35)
[2018-06-02] MEDS ORDERED: ePHEDrine 50 mg/ml Inj ONE (13:23)
[2018-06-02] MEDS ORDERED: Neostigmine Methylsulfate 3mg/3ml Syringe IV ONE (13:50)
[2018-06-02] MEDS ORDERED: Glycopyrrolate 0.2 mg/ml (2ml vial) ONE (13:50)
--- NOTE | 2018-06-02 14:14 | PCM.SURG1 ---
Surgeon's Initial Post Op Note - Surgeon's Notes Surgeon: Dr. Jordan Punch Operator: Theron PGY3; Vilma PGY2 Type of Anesthesia: General Endo, Local Anesthesia Administered By: Dr. Robin Pre-Operative Diagnosis: Acute on Chronic Cholecystitis Operative Findings: See operative report. Inflammed, thickened gallbladder Post-Operative Diagnosis: Same Operation Performed: Laparoscopic Converted to Open Subtotal Cholecystectomy Specimen/Specimens Removed: Gallbladder. GB aspirate sent for Culture and gram stain Estimated Blood Loss: EBL {In ML}: 150 Blood Products Given: N/A Drains Used: No Drains Post-Op Condition: Good Date of Surgery/Procedure: 06/02/18 Time of Surgery/Procedure: 14:15
[2018-06-02] MEDS: HYDROmorphone 0.5 mg/0.5 ml ISec IVP PRN ×4 (14:18→20:02)
[2018-06-02] MEDS ORDERED: HYDROmorphone 0.5 mg/0.5 ml ISec ONE ×3 (14:22→14:57)
--- NOTE | 2018-06-02 18:34 | CARD ---
APPROVED REPORT Date of service: 06/02/2018 EKG Measurement Heart [id number] 190P3 [id number] <Conclusion> Normal sinus rhythm Right bundle branch block Abnormal ECG
[2018-06-02] MEDS ORDERED: Lactated Ringer's 1,000 ML IV SCH (21:15)
[2018-06-02] MEDS: Oxycodone/Acetaminophen 5/325 mg Tab PO PRN (23:36)
[2018-06-03] MEDS: Lactated Ringer's 1,000 ML IV SCH (06:36)
[2018-06-03] MEDS: metroNIDAZOLE IV 500 mg/100 ml 500 MG/100 ML BAG IVPB SCH ×3 (07:19→21:06)
[2018-06-03 07:25] LABS: BASO # 0.01 K/mm3 (0.0-2.0); BASO % 0.1 % (0.0-3.0); EOS % 0.3 % (1.5-5.0); HEMOGLOBIN 13.3 g/dL (14.0-18.0); LYMPH # 1.3 (1.2-3.4); LYMPH % 11.3 % (22.0-35.0); MEAN CELL VOLUME 87.4 fl (80.0-105.0); MEAN CORPUSCULAR HEMOGLOBIN 28.9 pg (25.0-35.0); MEAN PLATELET VOLUME 10.7 fl (7.0-11.0); MONO # 1.3 (0.1-0.6); MONO % 11.6 % (1.0-6.0); RBC 4.61 10^6/uL (3.5-6.1); WHITE BLOOD COUNT 11.6 10^3/uL (4.5-11.0)
--- NOTE | 2018-06-03 07:26 | CP.PCM.PN ---
Subjective - Date & Time of Evaluation Date of Evaluation: 06/03/18 Time of Evaluation: 06:40 - Subjective Subjective: General surgery progress note for Dr. Jordan patient seen and examined this am at bedside. Overnight patient became febrile to 101.3 but resolved with fluids and tylenol. Patient endorses abdominal pain over the incision site but no other abdominal pain. Patient otherwise denies PEOPLES, CP SOB, n/v, chills and stool changes. Jay drain with 35 cc Serosanguinous overnight. Objective - Vital Signs/Intake and Output Vital Signs (last 24 hours): Temp Pulse Resp BP Pulse Ox 99.1 F 81 20 121/74 95 06/03/18 05:45 06/03/18 05:45 06/03/18 05:45 06/03/18 05:45 06/03/18 05:45 Intake and Output: 06/03/18 06/03/18 06:59 18:59 Intake Total 360 Balance 360 - Medications Medications: Current Medications Acetaminophen (Tylenol 325mg Tab) 650 mg PO Q4H PRN PRN Reason: Fever >100.4 F Heparin Sodium (Porcine) (Heparin) 5,000 units SC Q8 [facility]; Protocol Last Admin: 06/03/18 05:48 Dose: 5,000 units Hydromorphone HCl (Dilaudid) 0.5 mg IVP Q4H PRN PRN Reason: Pain, severe (8-10) Last Admin: 06/02/18 20:02 Dose: 0.5 mg Metronidazole (Flagyl) 500 mg in 100 mls @ 100 mls/hr IVPB Q8 [facility]; Protocol Last Admin: 06/03/18 07:19 Dose: 100 mls/hr Ceftriaxone Sodium (Rocephin 1 Gram Ivpb) 1 gm in 100 mls @ 100 mls/hr IVPB DAILY [facility]; Protocol Last Admin: 06/02/18 11:17 Dose: 100 mls Lactated Ringer's (Lactated Ringer's) 1,000 mls @ 100 mls/hr IV .Q10H [facility] Last Admin: 06/03/18 06:36 Dose: 100 mls/hr Nicotine (Nicoderm Cq) 1 patch TD DAILY [facility] Last Admin: 06/02/18 10:46 Dose: Not Given Ondansetron HCl (Zofran Inj) 4 mg IVP Q6H PRN PRN Reason: Nausea/Vomiting Oxycodone/Acetaminophen (Percocet 5/325 Mg Tab) 1 tab PO Q4H PRN PRN Reason: Pain, moderate (4-7) Stop: 06/05/18 14:21 Last Admin: 06/02/18 23:36 Dose: 1 tab Pantoprazole Sodium (Protonix Inj) 40 mg IVP DAILY [facility] Last Admin: 06/02/18 10:48 Dose: Not Given - Labs Labs: 06/02/18 06:10 06/02/18 06:10 PT 14.4 SECONDS (9.4-12.5) H 06/02/18 06:10 INR 1.27 06/02/18 06:10 APTT 34.0 Seconds (26.9-38.3) 06/01/18 06:50 - Constitutional Appears: Well, Non-toxic, No Acute Distress - Head Exam Head Exam: ATRAUMATIC - Eye Exam Eye Exam: EOMI - ENT Exam ENT Exam: Mucous Membranes Moist - Respiratory Exam Respiratory Exam: NORMAL BREATHING PATTERN - Cardiovascular Exam Cardiovascular Exam: REGULAR RHYTHM - GI/Abdominal Exam GI & Abdominal Exam: Soft, Tenderness (RUQ over incision site). absent: Guarding, Rebound - Extremities Exam Extremities Exam: absent: Calf Tenderness - Neurological Exam Neurological Exam: Alert, Awake, Oriented x3 - Psychiatric Exam Psychiatric exam: Normal Affect, Normal Mood - Skin Skin Exam: Dry, Intact, Normal Color, Warm Assessment and Plan - Assessment and Plan (Free Text) Assessment: 57 yr old male s/p lap converted to open cholecystectomy POD 1 Plan: Pain control ADAT SCD PT, OOBTC encourage IS use tylenol PRN for fevers >100.[address] Julian Lombardo, PGY 1
[2018-06-03 07:43] LABS: ALBUMIN 3.1 g/dL (3.0-4.8); ALT/SGPT 29 U/L (7-56); AST/SGOT 38 U/L (17-59); BLOOD UREA NITROGEN 8 mg/dL (7-21); CALCIUM 8.1 mg/dL (8.4-10.5); GFR NON-AFRICAN AMERICAN > 60
[2018-06-03] MEDS ORDERED: Potassium Chloride 20 mEq ER Tab PO ONE (07:54)
[2018-06-03] MEDS: Dextrose 5%/0.45% NS 1,000 ML IV SCH (08:02)
[2018-06-03] MEDS: HYDROmorphone 0.5 mg/0.5 ml ISec IVP PRN ×2 (08:03→13:12)
[2018-06-03] MEDS: cefTRIAXone 1 gm 1 GM/100 ML BAG IVPB SCH (09:15)
--- NOTE | 2018-06-03 11:40 | CP.PCM.PN ---
<John Rizo - Last Filed: 06/03/18 11:36> Subjective - Date & Time of Evaluation Date of Evaluation: 06/03/18 Time of Evaluation: 08:00 - Subjective Subjective: John Rizo DO, PGY-1 Hospitalist Progress Note for Dr. Alvarado Patient was seen and examined at bedside this AM. He reports continued abdominal pain at the surgical site and difficulty with ambulation since yesterday. Otherwise he offers no additional complaints and denies CP, SOB, nausea/vomiting, or new urinary complaints. Objective - Vital Signs/Intake and Output Vital Signs (last 24 hours): Temp Pulse Resp BP Pulse Ox 99.1 F 81 20 121/74 95 06/03/18 05:45 06/03/18 05:45 06/03/18 05:45 06/03/18 05:45 06/03/18 05:45 Intake and Output: 06/03/18 06/03/18 06:59 18:59 Intake Total 360 Balance 360 - Medications Medications: Current Medications Acetaminophen (Tylenol 325mg Tab) 650 mg PO Q4H PRN PRN Reason: Fever >100.4 F Enoxaparin Sodium (Lovenox) 40 mg SC DAILY [facility]; Protocol Hydromorphone HCl (Dilaudid) 0.5 mg IVP Q4H PRN PRN Reason: Pain, severe (8-10) Last Admin: 06/03/18 08:03 Dose: 0.5 mg Metronidazole (Flagyl) 500 mg in 100 mls @ 100 mls/hr IVPB Q8 [facility]; Protocol Last Admin: 06/03/18 07:19 Dose: 100 mls/hr Ceftriaxone Sodium (Rocephin 1 Gram Ivpb) 1 gm in 100 mls @ 100 mls/hr IVPB DAILY [facility]; Protocol Last Admin: 06/03/18 09:15 Dose: 100 mls/hr Dextrose/Sodium Chloride (Dextrose 5%/0.45% Ns 1000 Ml) 1,000 mls @ 75 mls/hr IV .[id number] [facility] Last Admin: 06/03/18 08:02 Dose: 75 mls/hr Nicotine (Nicoderm Cq) 1 patch TD DAILY [facility] Last Admin: 06/02/18 10:46 Dose: Not Given Ondansetron HCl (Zofran Inj) 4 mg IVP Q6H PRN PRN Reason: Nausea/Vomiting Oxycodone/Acetaminophen (Percocet 5/325 Mg Tab) 1 tab PO Q4H PRN PRN Reason: Pain, moderate (4-7) Stop: 06/05/18 14:21 Last Admin: 06/02/18 23:36 Dose: 1 tab Pantoprazole Sodium (Protonix Inj) 40 mg IVP DAILY [facility] Last Admin: 06/03/18 09:15 Dose: 40 mg - Labs Labs: 06/03/18 06:45 06/03/18 06:45 PT 14.4 SECONDS (9.4-12.5) H 06/02/18 06:10 INR 1.27 06/02/18 06:10 APTT 34.0 Seconds (26.9-38.3) 06/01/18 06:50 - Constitutional Appears: Non-toxic, No Acute Distress - Head Exam Head Exam: ATRAUMATIC, NORMOCEPHALIC - Eye Exam Eye Exam: EOMI, PERRL - ENT Exam ENT Exam: Mucous Membranes Moist - Neck Exam Neck Exam: Full ROM, Normal Inspection - Respiratory Exam Respiratory Exam: Clear to Ausculation Bilateral, NORMAL BREATHING PATTERN. absent: Rales, Rhonchi, Wheezes - Cardiovascular Exam Cardiovascular Exam: REGULAR RHYTHM, RRR, +S1, +S2. absent: Gallop, Rubs, Murmur - GI/Abdominal Exam GI & Abdominal Exam: Tenderness (greatest RUQ), Normal Bowel Sounds. absent: Guarding, Rebound Additional comments: laparoscopic and RUQ surgical wounds clean, dry, intact, SEAN drain with serosanguinous fluid 20 cc overnight - Extremities Exam Extremities Exam: Full ROM. absent: Pedal Edema - Back Exam Back Exam: NORMAL INSPECTION - Neurological Exam Neurological Exam: Alert, Awake, Oriented x3 - Psychiatric Exam Psychiatric exam: Normal Affect, Normal Mood - Skin Skin Exam: Dry, Intact, Warm Assessment and Plan - Assessment and Plan (Free Text) Assessment: 57 yo M with PMH of HLD presented to [facility] ED with abdominal pain and was subsequently admitted for management of acute cholecystitis. Patient is now s/p lap converted to open cholecystectomy POD 2. Plan: Post-op Fever/Leukocytosis Patient was noted to be febrile overnight with Tmax 101.3 Patient was given tylenol which improved fever Continue tylenol PRN fever Will continue to monitor Encourage regular ambulation, OOB to chair, and IS use Continue rocephin/flagyl Cholecystitis Patient is now s/p open cholecystectomy POD 2 Continue PT, OOB to chair, IS use Continue rocephin/flagyl Continue pain management Zofran PRN Advance diet as tolerated Hypokalemia Remains hypokalemic this morning, continue to replace Recheck in AM Tobacco abuse Continue to instruct patient on importance of cessation Nicotine patch PRN DVT/GI PPX: Lovenox/protonix Full Code liquid diet and ADAT Monitor on med/surg Patient seen, examined with, and plan discussed with my attending Dr. Christiano Rizo D.O. IM Resident PGY-1 Pager: [phone] <Gabriella Alvarado - Last Filed: 06/03/18 15:36> Objective - Vital Signs/Intake and Output Vital Signs (last 24 hours): Temp Pulse Resp BP Pulse Ox 99.1 F 81 20 121/74 95 06/03/18 05:45 06/03/18 05:45 06/03/18 05:45 06/03/18 05:45 06/03/18 05:45 Intake and Output: 06/03/18 06/03/18 06:59 18:59 Intake Total 360 Balance 360 - Medications Medications: Current Medications Acetaminophen (Tylenol 325mg Tab) 650 mg PO Q4H PRN PRN Reason: Fever >100.4 F Enoxaparin Sodium (Lovenox) 40 mg SC DAILY [facility]; Protocol Hydromorphone HCl (Dilaudid) 0.5 mg IVP Q4H PRN PRN Reason: Pain, severe (8-10) Last Admin: 06/03/18 13:12 Dose: 0.5 mg Metronidazole (Flagyl) 500 mg in 100 mls @ 100 mls/hr IVPB Q8 [facility]; Protocol Last Admin: 06/03/18 13:13 Dose: 100 mls/hr Ceftriaxone Sodium (Rocephin 1 Gram Ivpb) 1 gm in 100 mls @ 100 mls/hr IVPB DAILY [facility]; Protocol Last Admin: 06/03/18 09:15 Dose: 100 mls/hr Dextrose/Sodium Chloride (Dextrose 5%/0.45% Ns 1000 Ml) 1,000 mls @ 75 mls/hr IV .[id number] [facility] Last Admin: 06/03/18 08:02 Dose: 75 mls/hr Nicotine (Nicoderm Cq) 1 patch TD DAILY [facility] Last Admin: 06/03/18 14:24 Dose: 1 patch Ondansetron HCl (Zofran Inj) 4 mg IVP Q6H PRN PRN Reason: Nausea/Vomiting Oxycodone/Acetaminophen (Percocet 5/325 Mg Tab) 1 tab PO Q4H PRN PRN Reason: Pain, moderate (4-7) Stop: 06/05/18 14:21 Last Admin: 06/03/18 14:26 Dose: 1 tab Pantoprazole Sodium (Protonix Ec Tab) 40 mg PO 0600 [facility] - Labs Labs: 06/03/18 06:45 06/03/18 06:45 PT 14.4 SECONDS (9.4-12.5) H 06/02/18 06:10 INR 1.27 06/02/18 06:10 APTT 34.0 Seconds (26.9-38.3) 06/01/18 06:50 Attending/Attestation - Attestation I have personally seen and examined this patient.: Yes I have fully participated in the care of the patient.: Yes I have reviewed all pertinent clinical information, including history, physical exam and plan: Yes Notes (Text): 06/03/18 15:33 Attending note; Patient seen and examined with resident. s/p open cholecytectomy. not in acute distress. had temp of 101 last night resolved with tylenol. currently afebrile and nontoxic. on liquid diet. Patient is a 57 year old male with past medical history of hyperlipidemia presenting with abdominal pain and admitted for management of acute cholec ystitis, now s/p subtotal cholecystectomy. 1. S/p Open cholecystectomy with SEAN drain. POD#1. serosanguineous fluid in the drain. continue IV rocephin and flagyl. Monitor closely for fever. blood culture is negative. 2. pain management with IV dilaudid. 3. GI/DVT prophylaxis. 4. Active smoking: smoking cessation is strongly advised. On nicoderm patch. 5. hypokalemia: potassium supplementation ordered. out of bed to chair as tolerated. upon discharge the patient will follow up with PMD DR. Lawson.
[2018-06-03] MEDS: Oxycodone/Acetaminophen 5/325 mg Tab PO PRN ×2 (14:26→21:15)
[2018-06-03 15:13] VITALS: O2SAT 96
[2018-06-04] MEDS: Dextrose 5%/0.45% NS 1,000 ML IV SCH (03:36)
[2018-06-04] MEDS: Pantoprazole 40 mg EC Tab PO SCH (05:17)
[2018-06-04] MEDS: metroNIDAZOLE IV 500 mg/100 ml 500 MG/100 ML BAG IVPB SCH ×3 (05:17→21:38)
--- NOTE | 2018-06-04 08:37 | CP.PCM.PN ---
Subjective - Date & Time of Evaluation Date of Evaluation: 06/04/18 Time of Evaluation: 08:33 - Subjective Subjective: Surgery Progress note. Dr. Jordan Pt seen and examined at bedside. No acute events overnight. Reports flatus. Has been tolerating current diet. No N/V/D. Abd pain improving. No new complaints. No F/C. Objective - Vital Signs/Intake and Output Vital Signs (last 24 hours): Temp Pulse Resp BP Pulse Ox 97.6 F 77 20 121/70 96 06/04/18 08:00 06/04/18 08:00 06/04/18 08:00 06/04/18 08:00 06/04/18 08:00 Intake and Output: 06/04/18 06/04/18 06:59 18:59 Intake Total Output Total Balance - Medications Medications: Current Medications Acetaminophen (Tylenol 325mg Tab) 650 mg PO Q4H PRN PRN Reason: Fever >100.4 F Last Admin: 06/03/18 20:43 Dose: 650 mg Enoxaparin Sodium (Lovenox) 40 mg SC DAILY [facility]; Protocol Hydromorphone HCl (Dilaudid) 0.5 mg IVP Q4H PRN PRN Reason: Pain, severe (8-10) Last Admin: 06/03/18 13:12 Dose: 0.5 mg Metronidazole (Flagyl) 500 mg in 100 mls @ 100 mls/hr IVPB Q8 [facility]; Protocol Last Admin: 06/04/18 05:17 Dose: 100 mls/hr Ceftriaxone Sodium (Rocephin 1 Gram Ivpb) 1 gm in 100 mls @ 100 mls/hr IVPB DAILY [facility]; Protocol Last Admin: 06/03/18 09:15 Dose: 100 mls/hr Dextrose/Sodium Chloride (Dextrose 5%/0.45% Ns 1000 Ml) 1,000 mls @ 75 mls/hr IV .[id number] [facility] Last Admin: 06/04/18 03:36 Dose: 75 mls/hr Nicotine (Nicoderm Cq) 1 patch TD DAILY [facility] Last Admin: 06/03/18 14:24 Dose: 1 patch Ondansetron HCl (Zofran Inj) 4 mg IVP Q6H PRN PRN Reason: Nausea/Vomiting Oxycodone/Acetaminophen (Percocet 5/325 Mg Tab) 1 tab PO Q4H PRN PRN Reason: Pain, moderate (4-7) Stop: 06/05/18 14:21 Last Admin: 06/03/18 21:15 Dose: 1 tab Pantoprazole Sodium (Protonix Ec Tab) 40 mg PO 0600 [facility] Last Admin: 06/04/18 05:17 Dose: 40 mg - Labs Labs: 06/03/18 06:45 06/03/18 06:45 PT 14.4 SECONDS (9.4-12.5) H 06/02/18 06:10 INR 1.27 06/02/18 06:10 APTT 34.0 Seconds (26.9-38.3) 06/01/18 06:50 - Constitutional Appears: Well, Non-toxic, No Acute Distress - Head Exam Head Exam: ATRAUMATIC, NORMAL INSPECTION, NORMOCEPHALIC - Eye Exam Eye Exam: EOMI, Normal appearance. absent: Scleral icterus - ENT Exam ENT Exam: Mucous Membranes Moist - Respiratory Exam Respiratory Exam: NORMAL BREATHING PATTERN. absent: Accessory Muscle Use, Respiratory Distress - Cardiovascular Exam Cardiovascular Exam: RRR. absent: JVD - GI/Abdominal Exam GI & Abdominal Exam: Soft. absent: Distended, Firm, Guarding, Rigid, Rebound Additional comments: Dressing clean dry and intact. Drain with serosang output. - Extremities Exam Extremities Exam: Normal Inspection. absent: Calf Tenderness - Neurological Exam Neurological Exam: Alert, Awake, Oriented x3 - Psychiatric Exam Psychiatric exam: Normal Affect, Normal Mood - Skin Skin Exam: Dry, Intact, Normal Color, Warm Assessment and Plan - Assessment and Plan (Free Text) Assessment: 57yo M w acute wander s/p Lap converted to open cholecystectomy. POD 2 Plan: - Advance diet as tolerated - Pain management - PT eval and treat. OOBTC. Encourage ambulation - SCDs - f/u AM labs Further recs as per Dr. Julian Esparza PGY2 surgery
[2018-06-04] MEDS: cefTRIAXone 1 gm 1 GM/100 ML BAG IVPB SCH (09:29)
[2018-06-04] MEDS: Enoxaparin 40 mg Syringe SC SCH (09:32)
[2018-06-04 10:19] LABS: BASO # 0.01 K/mm3 (0.0-2.0); BASO % 0.1 % (0.0-3.0); EOS # 0.3 (0.0-0.7); HEMOGLOBIN 12.4 g/dL (14.0-18.0); LYMPH # 1.5 (1.2-3.4); LYMPH % 20.1 % (22.0-35.0); MEAN CELL VOLUME 87.2 fl (80.0-105.0); MEAN CORPUSCULAR HEMOGLOBIN 29.3 pg (25.0-35.0); MEAN CORPUSCULAR HGB CONC 33.6 g/dl (31.0-37.0); MEAN PLATELET VOLUME 10.1 fl (7.0-11.0); MONO # 0.9 (0.1-0.6); MONO % 11.7 % (1.0-6.0); RBC 4.23 10^6/uL (3.5-6.1); RED CELL DISTRIBUTION WIDTH 14.2 % (11.5-14.5); WHITE BLOOD COUNT 7.6 10^3/uL (4.5-11.0)
[2018-06-04 10:30] LABS: ALB/GLOB RATIO 0.9 (1.1-1.8); ALT/SGPT 25 U/L (7-56); AST/SGOT 25 U/L (17-59); BLOOD UREA NITROGEN 9 mg/dL (7-21); CALCIUM 8.1 mg/dL (8.4-10.5); GFR NON-AFRICAN AMERICAN > 60
--- NOTE | 2018-06-04 12:56 | CP.PCM.PN ---
<John Rizo - Last Filed: 06/04/18 12:51> Subjective - Date & Time of Evaluation Date of Evaluation: 06/04/18 Time of Evaluation: 07:00 - Subjective Subjective: John Rizo DO, PGY-1 Hospitalist Progress Note for Dr. Alvarado Patient was seen and examined at bedside this AM. He reports pain is improved an d he was able to eat dinner last night without nausea/vomiting. He was able to get OOB to chair yesterday and this morning as well. He states the gas pains are improving. Objective - Vital Signs/Intake and Output Vital Signs (last 24 hours): Temp Pulse Resp BP Pulse Ox 97.6 F 77 20 121/70 96 06/04/18 08:00 06/04/18 08:00 06/04/18 08:00 06/04/18 08:00 06/04/18 08:00 Intake and Output: 06/04/18 06/04/18 06:59 18:59 Intake Total Output Total Balance - Medications Medications: Current Medications Acetaminophen (Tylenol 325mg Tab) 650 mg PO Q4H PRN PRN Reason: Fever >100.4 F Last Admin: 06/03/18 20:43 Dose: 650 mg Enoxaparin Sodium (Lovenox) 40 mg SC DAILY [facility]; Protocol Last Admin: 06/04/18 09:32 Dose: 40 mg Hydromorphone HCl (Dilaudid) 0.5 mg IVP Q4H PRN PRN Reason: Pain, severe (8-10) Last Admin: 06/03/18 13:12 Dose: 0.5 mg Metronidazole (Flagyl) 500 mg in 100 mls @ 100 mls/hr IVPB Q8 [facility]; Protocol Last Admin: 06/04/18 05:17 Dose: 100 mls/hr Ceftriaxone Sodium (Rocephin 1 Gram Ivpb) 1 gm in 100 mls @ 100 mls/hr IVPB DAILY [facility]; Protocol Last Admin: 06/04/18 09:29 Dose: 100 mls/hr Dextrose/Sodium Chloride (Dextrose 5%/0.45% Ns 1000 Ml) 1,000 mls @ 75 mls/hr IV .[id number] [facility] Last Admin: 06/04/18 03:36 Dose: 75 mls/hr Nicotine (Nicoderm Cq) 1 patch TD DAILY [facility] Last Admin: 06/03/18 14:24 Dose: 1 patch Ondansetron HCl (Zofran Inj) 4 mg IVP Q6H PRN PRN Reason: Nausea/Vomiting Oxycodone/Acetaminophen (Percocet 5/325 Mg Tab) 1 tab PO Q4H PRN PRN Reason: Pain, moderate (4-7) Stop: 06/05/18 14:21 Last Admin: 06/03/18 21:15 Dose: 1 tab Pantoprazole Sodium (Protonix Ec Tab) 40 mg PO 0600 [facility] Last Admin: 06/04/18 05:17 Dose: 40 mg - Labs Labs: 06/04/18 10:00 06/04/18 10:00 PT 14.4 SECONDS (9.4-12.5) H 06/02/18 06:10 INR 1.27 06/02/18 06:10 APTT 34.0 Seconds (26.9-38.3) 06/01/18 06:50 - Constitutional Appears: Non-toxic, No Acute Distress - Head Exam Head Exam: ATRAUMATIC, NORMOCEPHALIC - Eye Exam Eye Exam: EOMI, PERRL - ENT Exam ENT Exam: Mucous Membranes Moist - Neck Exam Neck Exam: Full ROM, Normal Inspection - Respiratory Exam Respiratory Exam: Clear to Ausculation Bilateral, NORMAL BREATHING PATTERN. absent: Accessory Muscle Use, Rales, Rhonchi, Wheezes, Respiratory Distress - Cardiovascular Exam Cardiovascular Exam: REGULAR RHYTHM, RRR, +S1, +S2. absent: Gallop, Rubs, Murmur - GI/Abdominal Exam GI & Abdominal Exam: Soft, Tenderness (milder tenderness to palpation near surgical site, improving), Normal Bowel Sounds. absent: Guarding, Rebound Additional comments: laparoscopic and RUQ surgical wounds clean, dry, intact, SEAN drain with serosanguinous fluid, draining less - Extremities Exam Extremities Exam: Full ROM, Normal Inspection. absent: Pedal Edema - Back Exam Back Exam: NORMAL INSPECTION - Neurological Exam Neurological Exam: Alert, Awake, Oriented x3 - Psychiatric Exam Psychiatric exam: Normal Affect, Normal Mood - Skin Skin Exam: Dry, Intact, Warm Assessment and Plan - Assessment and Plan (Free Text) Assessment: 57 yo M with PMH of HLD [place] [facility] [place] and was subs equently admitted for management of acute cholecystitis. Patient is now s/p lap converted to open cholecystectomy POD 3. Plan: Post-op Fever/Leukocytosis Patient continued to have mild fever overnight, Tmax 100 Leukocytosis resolved, no other SIRS Continue tylenol PRN fever Continue to encourage regular ambulation, OOB to chair, and IS use Continue rocephin/flagyl Cholecystitis Patient is now s/p open cholecystectomy POD 3 Continue PT, OOB to chair, IS use Continue rocephin/flagyl Continue pain management with percocet Zofran PRN Tolerating regular diet well without nausea/vomiting Hypokalemia Mildly hypokalemic this morning, continue to replace Recheck in AM Tobacco abuse Continue to instruct patient on importance of cessation Nicotine patch PRN DVT/GI PPX: Lovenox/protonix Full Code Regular diet Monitor on med/surg Patient seen, examined with, and plan discussed with my attending Dr. Christiano Rizo D.O. IM Resident PGY-1 Pager: [phone] <Gabriella Alvarado - Last Filed: 06/04/18 13:37> Objective - Vital Signs/Intake and Output Vital Signs (last 24 hours): Temp Pulse Resp BP Pulse Ox 97.6 F 77 20 121/70 96 06/04/18 08:00 06/04/18 08:00 06/04/18 08:00 06/04/18 08:00 06/04/18 08:00 Intake and Output: 06/04/18 06/04/18 06:59 18:59 Intake Total Output Total Balance - Medications Medications: Current Medications Acetaminophen (Tylenol 325mg Tab) 650 mg PO Q4H PRN PRN Reason: Fever >100.4 F Last Admin: 06/03/18 20:43 Dose: 650 mg Enoxaparin Sodium (Lovenox) 40 mg SC DAILY [facility]; Protocol Last Admin: 06/04/18 09:32 Dose: 40 mg Hydromorphone HCl (Dilaudid) 0.5 mg IVP Q4H PRN PRN Reason: Pain, severe (8-10) Last Admin: 06/03/18 13:12 Dose: 0.5 mg Metronidazole (Flagyl) 500 mg in 100 mls @ 100 mls/hr IVPB Q8 [facility]; Protocol Last Admin: 06/04/18 13:21 Dose: 100 mls/hr Ceftriaxone Sodium (Rocephin 1 Gram Ivpb) 1 gm in 100 mls @ 100 mls/hr IVPB DAILY [facility]; Protocol Last Admin: 06/04/18 09:29 Dose: 100 mls/hr Dextrose/Sodium Chloride (Dextrose 5%/0.45% Ns 1000 Ml) 1,000 mls @ 75 mls/hr IV .[id number] [facility] Last Admin: 06/04/18 03:36 Dose: 75 mls/hr Nicotine (Nicoderm Cq) 1 patch TD DAILY [facility] Last Admin: 06/03/18 14:24 Dose: 1 patch Ondansetron HCl (Zofran Inj) 4 mg IVP Q6H PRN PRN Reason: Nausea/Vomiting Oxycodone/Acetaminophen (Percocet 5/325 Mg Tab) 1 tab PO Q4H PRN PRN Reason: Pain, moderate (4-7) Stop: 06/05/18 14:21 Last Admin: 06/03/18 21:15 Dose: 1 tab Pantoprazole Sodium (Protonix Ec Tab) 40 mg PO 0600 [facility] Last Admin: 06/04/18 05:17 Dose: 40 mg - Labs Labs: 06/04/18 10:00 06/04/18 10:00 PT 14.4 SECONDS (9.4-12.5) H 06/02/18 06:10 INR 1.27 06/02/18 06:10 APTT 34.0 Seconds (26.9-38.3) 06/01/18 06:50 Attending/Attestation - Attestation I have personally seen and examined this patient.: Yes I have fully participated in the care of the patient.: Yes I have reviewed all pertinent clinical information, including history, physical exam and plan: Yes Notes (Text): 06/04/18 13:33 Attending note; Patient seen and examined with resident. s/p open cholecytectomy. not in acute distress. currently afebrile and nontoxic. Tolerating liquid diet. Patient is a 57 year old male with past medical history of hyperlipidemia presenting with abdominal pain and admitted for management of acute cholecystit is, now s/p subtotal cholecystectomy. 1. S/p Open cholecystectomy with SEAN drain. POD#2. serosanguineous fluid in the drain. continue IV rocephin and flagyl. blood culture is negative. Urine culture is negative. Gallbladder was cultures positive for E. coli. Clinically stable. Leukocytosis resolved. Advance to regular diet today. 2. pain management with IV dilaudid. 3. GI/DVT prophylaxis. 4. Active smoking: smoking cessation is strongly advised. On nicoderm patch. 5. hypokalemia: potassium supplementation ordered. out of bed to chair as tolerated. upon discharge the patient will follow up with PMD DR. Lawson. 06/04/18 13:36
[2018-06-04] MEDS ORDERED: Potassium Chloride 20 mEq ER Tab PO STA (13:35)
[2018-06-04] MEDS: Oxycodone/Acetaminophen 5/325 mg Tab PO PRN (22:02)
[2018-06-05] MEDS: Dextrose 5%/0.45% NS 1,000 ML IV SCH (00:53)
[2018-06-05] MEDS: Pantoprazole 40 mg EC Tab PO SCH (05:39)
[2018-06-05] MEDS: metroNIDAZOLE IV 500 mg/100 ml 500 MG/100 ML BAG IVPB SCH (05:39)
[2018-06-05 07:02] LABS: ALB/GLOB RATIO 0.9 (1.1-1.8); ALBUMIN 3.1 g/dL (3.0-4.8); ALT/SGPT 19 U/L (7-56); AST/SGOT 27 U/L (17-59); BLOOD UREA NITROGEN 9 mg/dL (7-21); GFR NON-AFRICAN AMERICAN > 60
[2018-06-05 08:12] VITALS: BP 133/69; PULSE 75; RESP 18; TEMP 98.6
--- NOTE | 2018-06-05 08:17 | CP.PCM.PN ---
Subjective - Date & Time of Evaluation Date of Evaluation: 06/05/18 Time of Evaluation: 08:12 - Subjective Subjective: Sacha Jarrell PGY1 Progress Note for Dr. Jordan Patient was examined at bedside this morning. He reports feeling well. He has no complaints, denying fever, chills, abdominal pain, nausea, vomiting, diarrhea. Objective - Vital Signs/Intake and Output Vital Signs (last 24 hours): Temp Pulse Resp BP Pulse Ox 98.6 F 75 18 133/69 96 06/05/18 06:00 06/05/18 06:00 06/05/18 06:00 06/05/18 06:00 06/05/18 06:00 Intake and Output: 06/05/18 06/05/18 06:59 18:59 Intake Total 800 Output Total 910 Balance -110 - Medications Medications: Current Medications Acetaminophen (Tylenol 325mg Tab) 650 mg PO Q4H PRN PRN Reason: Fever >100.4 F Last Admin: 06/03/18 20:43 Dose: 650 mg Enoxaparin Sodium (Lovenox) 40 mg SC DAILY [facility]; Protocol Last Admin: 06/04/18 09:32 Dose: 40 mg Hydromorphone HCl (Dilaudid) 0.5 mg IVP Q4H PRN PRN Reason: Pain, severe (8-10) Last Admin: 06/03/18 13:12 Dose: 0.5 mg Metronidazole (Flagyl) 500 mg in 100 mls @ 100 mls/hr IVPB Q8 [facility]; Protocol Last Admin: 06/05/18 05:39 Dose: 100 mls/hr Ceftriaxone Sodium (Rocephin 1 Gram Ivpb) 1 gm in 100 mls @ 100 mls/hr IVPB DAILY [facility]; Protocol Last Admin: 06/04/18 09:29 Dose: 100 mls/hr Nicotine (Nicoderm Cq) 1 patch TD DAILY [facility] Last Admin: 06/03/18 14:24 Dose: 1 patch Ondansetron HCl (Zofran Inj) 4 mg IVP Q6H PRN PRN Reason: Nausea/Vomiting Oxycodone/Acetaminophen (Percocet 5/325 Mg Tab) 1 tab PO Q4H PRN PRN Reason: Pain, moderate (4-7) Stop: 06/05/18 14:21 Last Admin: 06/04/18 22:02 Dose: 1 tab Pantoprazole Sodium (Protonix Ec Tab) 40 mg PO 0600 [facility] Last Admin: 06/05/18 05:39 Dose: 40 mg - Labs Labs: 06/04/18 10:00 06/05/18 06:30 PT 14.4 SECONDS (9.4-12.5) H 06/02/18 06:10 INR 1.27 06/02/18 06:10 APTT 34.0 Seconds (26.9-38.3) 06/01/18 06:50 - Constitutional Appears: Well, No Acute Distress - Head Exam Head Exam: ATRAUMATIC, NORMOCEPHALIC - Eye Exam Eye Exam: EOMI, Normal appearance Pupil Exam: NORMAL ACCOMODATION - Respiratory Exam Respiratory Exam: Clear to Ausculation Bilateral, NORMAL BREATHING PATTERN. absent: Rales, Rhonchi, Wheezes - Cardiovascular Exam Cardiovascular Exam: REGULAR RHYTHM, +S1, +S2. absent: Gallop, Rubs, Murmur - GI/Abdominal Exam GI & Abdominal Exam: Soft, Normal Bowel Sounds. absent: Distended, Tenderness Additional comments: 10cc serosanguinous output from drain overnight - Extremities Exam Extremities Exam: Normal Inspection. absent: Pedal Edema - Neurological Exam Neurological Exam: Alert, Awake, Oriented x3 - Psychiatric Exam Psychiatric exam: Normal Affect, Normal Mood - Skin Skin Exam: Normal Color Assessment and Plan - Assessment and Plan (Free Text) Assessment: 57yo M w acute wander s/p Lap converted to open cholecystectomy. POD 3. Plan: - Advance diet as tolerated - Pain management - PT eval and treat. OOBTC. Encourage ambulation - AM labs wnl - stable for d/c from surgical standpoint Further recs as per Dr. Jordan
[2018-06-05] MEDS: cefTRIAXone 1 gm 1 GM/100 ML BAG IVPB SCH (09:16)
[2018-06-05] MEDS: Enoxaparin 40 mg Syringe SC SCH (09:17)
--- NOTE | 2018-06-05 13:07 | CP.PCM.DIS ---
<Indra Flores - Last Filed: 06/05/18 13:07> Provider - Provider Date of Admission: 05/31/18 22:09 Attending physician: Gabriella Alvarado MD Primary care physician: Dr. Umana Consults: 05/31/18 23:28 Physician Consult Routine Comment: Consulting Provider: Awais Jordan Consulting Physician: Awais Jordan Reason for Consult: cholecystitis Time Spent in preparation of Discharge (in minutes): 40 Hospital Course - Lab Results Lab Results: Micro Results 05/31/18 22:00 Blood Blood Culture - Preliminary NO GROWTH AFTER 4 DAYS 05/31/18 21:30 Blood Blood Culture - Preliminary NO GROWTH AFTER 4 DAYS 06/02/18 15:51 Gallbladder Gram Stain - Final 06/02/18 15:51 Gallbladder Wound Culture - Final Escherichia Coli 05/31/18 13:40 Urine Random Urine Culture - Final No Growth (<1,000 CFU/ML) Most Recent Lab Values WBC 7.6 10^3/uL (4.5-11.0) D 06/04/18 10:00 RBC 4.23 10^6/uL (3.5-6.1) 06/04/18 10:00 Hgb 12.4 g/dL (14.0-18.0) L 06/04/18 10:00 Hct 36.9 % (42.0-52.0) L 06/04/18 10:00 MCV 87.2 fl (80.0-105.0) 06/04/18 10:00 MCH 29.3 pg (25.0-35.0) 06/04/18 10:00 MCHC 33.6 g/dl (31.0-37.0) 06/04/18 10:00 RDW 14.2 % (11.5-14.5) 06/04/18 10:00 Plt Count 246 10^3/uL (120.0-450.0) 06/04/18 10:00 MPV 10.1 fl (7.0-11.0) 06/04/18 10:00 Neut % (Auto) 64.1 % (50.0-68.0) 06/04/18 10:00 Lymph % (Auto) 20.1 % (22.0-35.0) L 06/04/18 10:00 [place] % (Auto) 11.7 % (1.0-6.0) H 06/04/18 10:00 Eos % (Auto) 4.0 % (1.5-5.0) 06/04/18 10:00 Baso % (Auto) 0.1 % (0.0-3.0) 06/04/18 10:00 Lymph # (Auto) 1.5 (1.2-3.4) 06/04/18 10:00 [place] # (Auto) 0.9 (0.1-0.6) H 06/04/18 10:00 Eos # (Auto) 0.3 (0.0-0.7) 06/04/18 10:00 Baso # (Auto) 0.01 K/mm3 (0.0-2.0) 06/04/18 10:00 Absolute Neuts (auto) 4.84 (1.4-6.5) 06/04/18 10:00 PT 14.4 SECONDS (9.4-12.5) H 06/02/18 06:10 INR 1.27 06/02/18 06:10 APTT 34.0 Seconds (26.9-38.3) 06/01/18 06:50 Sodium 139 mmol/L (132-148) 06/05/18 06:30 Potassium 3.7 mmol/L (3.6-5.0) 06/05/18 06:30 Chloride 109 mmol/L (98-107) H 06/05/18 06:30 Carbon Dioxide 24 mmol/L (21-33) 06/05/18 06:30 Anion Gap 10 (10-20) 06/05/18 06:30 BUN 9 mg/dL (7-21) 06/05/18 06:30 Creatinine 0.7 mg/dl (0.8-1.5) L 06/05/18 06:30 Est GFR ( Amer) > 60 06/05/18 06:30 Est GFR (Non-Af Amer) > 60 06/05/18 06:30 Random Glucose 98 mg/dL (70-110) 06/05/18 06:30 Calcium 8.0 mg/dL (8.4-10.5) L 06/05/18 06:30 Phosphorus 2.4 mg/dL (2.5-4.5) L 06/03/18 06:45 Magnesium 2.0 mg/dL (1.7-2.2) 06/03/18 06:45 Total Bilirubin 0.4 mg/dL (0.2-1.3) 06/05/18 06:30 AST 27 U/L (17-59) 06/05/18 06:30 ALT 19 U/L (7-56) 06/05/18 06:30 Alkaline Phosphatase 86 U/L (38-126) 06/05/18 06:30 Total Creatine Kinase 88 U/L (35-230) 05/31/18 15:30 Troponin I < 0.01 ng/mL 05/31/18 15:30 Total Protein 6.4 g/dL (5.8-8.3) 06/05/18 06:30 Albumin 3.1 g/dL (3.0-4.8) 06/05/18 06:30 Globulin 3.3 gm/dL 06/05/18 06:30 Albumin/Globulin Ratio 0.9 (1.1-1.8) L 06/05/18 06:30 Lipase 54 U/L (23-300) 05/31/18 15:30 Urine Color Yellow (YELLOW) 05/31/18 14:40 Urine Appearance Clear (CLEAR) 05/31/18 14:40 Urine pH 6.0 (4.7-8.0) 05/31/18 14:40 Ur Specific [place] 1.025 (1.005-1.035) 05/31/18 14:40 Urine Protein Negative mg/dL (<30 mg/dL) 05/31/18 14:40 Urine Glucose (UA) Negative mg/dL (NEGATIVE) 05/31/18 14:40 Urine Ketones Negative mg/dL (NEGATIVE) 05/31/18 14:40 Urine Blood Negative (NEGATIVE) 05/31/18 14:40 Urine Nitrate Negative (NEGATIVE) 05/31/18 14:40 Urine Bilirubin Negative (NEGATIVE) 05/31/18 14:40 Urine Urobilinogen 0.2 E.U./dL (<1 E.U./dL) 05/31/18 14:40 Ur Leukocyte Esterase Negative Андрей/uL (NEGATIVE) 05/31/18 14:40 - Hospital Course Hospital Course: Indra Flores, PGY-1 Discharge Summary for Hospitalist Service Hospital Course: 57 year old French speaking M with PMHx of hyperlipidemia who presented on 05/31/18 with abdominal pain x5 days. Patient states he took some pain medication which relieved the pain, but it came back and moved towards his chest and then moved towards his abdomen. The pain worsened on day of admission. Abdomen U/S as well as Pelvis CT showed stone in gallbladder neck as well as thickening of Gb wall and no CBD dilation. Surgery (Dr. Jordan) was consulted. Patient was initially put NPO, on IV fluids, pain control and anti-emetics. Patient initially put on Rocephin and Flagyl. Patient was subsequently taken to OR for cholecystectomy. Laparoscopic procedure was converted to open intraoperatively d ue to inflamed thickened GB. Culture was taken and subsequently grew E. coli. Episodes of hypokalemia was repleted daily as needed. Leukocytosis on admission resolved. Patient was then monitored with a SEAN drain that had sequentially decreasing output over the hospital course and on pain control with Tylenbol, Dilaudid, and Percocet. On day of discharge, patient reported pain is mostly under control. Surgical team removed drain. Per surgical attendant and team, no further antibiotics are necessary upon discharge. Patient reports mild dusty-incisional abdominal tenderness but denies chest pain, palpitations, shortness of breath, dysuria, diarrhea, constipation, leg pain, headaches, dizziness. Patient understood recommendations and instructions upon discharge. All questions were answered in detail and to patient satisfaction. Patient was provided script for 8 tablets of Percocet for pain control as well as script of hospital stay for work. Surgical team had no recommendations for further medications. For further details of hospitalization, please refer to EMR. Patient seen, case reviewed and plan approved by Dr. Glenna Harkins. Discharge Exam - Additional Findings Additional findings: - Constitutional Appears: Non-toxic, No Acute Distress - Head Exam Head Exam: ATRAUMATIC, NORMOCEPHALIC - Eye Exam Eye Exam: EOMI, PERRL - ENT Exam ENT Exam: Mucous Membranes Moist - Neck Exam Neck Exam: Full ROM, Normal Inspection - Respiratory Exam Respiratory Exam: Clear to Ausculation Bilateral, NORMAL BREATHING PATTERN. absent: Accessory Muscle Use, Rales, Rhonchi, Wheezes, Respiratory Distress - Cardiovascular Exam Cardiovascular Exam: REGULAR RHYTHM, RRR, +S1, +S2. absent: Gallop, Rubs, Murmur - GI/Abdominal Exam GI & Abdominal Exam: Soft, Tenderness (milder tenderness to palpation near surgical site, improving), Normal Bowel Sounds. absent: Guarding, Rebound Additional comments: laparoscopic and RUQ surgical wounds clean, dry, intact, SEAN drain removed - Extremities Exam Extremities Exam: Full ROM, Normal Inspection. absent: Pedal Edema - Back Exam Back Exam: NORMAL INSPECTION - Neurological Exam Neurological Exam: Alert, Awake, Oriented x3 - Psychiatric Exam Psychiatric exam: Normal Affect, Normal Mood - Skin Skin Exam: Dry, Intact, Warm Discharge Plan - Discharge Medications Prescriptions: oxyCODONE/Acetaminophen [Percocet 5/325 mg Tab] 1 ea PO Q6H #8 tab - Follow Up Plan Condition: STABLE Disposition: HOME/ ROUTINE Instructions: Acute Abdomen (Belly Pain), Cholecystitis (DC), Cholecystitis (GEN) Additional Instructions: - Please follow up with your primary doctor Dr. Umana within 3-5 days - Please follow up with Dr. Jordan, your surgeon within 1 week or earlier if needed - Please avoid heavy lifting until follow-up in Dr. Jordan office. - Patient may shower after 48 hours since your drain was removed per surgery recommendations. - Increase your diet as tolerated, avoid fatty foods - Encourage increased ambulation and activity as tolerated - Return to ED if symptoms return Referrals: Herminio Lawson MD [Family Provider] - Awais Jordan MD [Staff Provider] - <TorinKayli R - Last Filed: 06/05/18 18:53> Provider - Provider Date of Admission: 05/31/18 22:09 Attending physician: Gabriella Alvarado MD Consults: 05/31/18 23:28 Physician Consult Routine Comment: Consulting Provider: Awais Jordan Consulting Physician: Awais Jordan Reason for Consult: cholecystitis Hospital Course - Lab Results Lab Results: Micro Results 05/31/18 22:00 Blood Blood Culture - Preliminary NO GROWTH AFTER 4 DAYS 05/31/18 21:30 Blood Blood Culture - Preliminary NO GROWTH AFTER 4 DAYS 06/02/18 15:51 Gallbladder Gram Stain - Final 06/02/18 15:51 Gallbladder Wound Culture - Final Escherichia Coli 05/31/18 13:40 Urine Random Urine Culture - Final No Growth (<1,000 CFU/ML) Most Recent Lab Values WBC 7.6 10^3/uL (4.5-11.0) D 06/04/18 10:00 RBC 4.23 10^6/uL (3.5-6.1) 06/04/18 10:00 Hgb 12.4 g/dL (14.0-18.0) L 06/04/18 10:00 Hct 36.9 % (42.0-52.0) L 06/04/18 10:00 MCV 87.2 fl (80.0-105.0) 06/04/18 10:00 MCH 29.3 pg (25.0-35.0) 06/04/18 10:00 MCHC 33.6 g/dl (31.0-37.0) 06/04/18 10:00 RDW 14.2 % (11.5-14.5) 06/04/18 10:00 Plt Count 246 10^3/uL (120.0-450.0) 06/04/18 10:00 MPV 10.1 fl (7.0-11.0) 06/04/18 10:00 Neut % (Auto) 64.1 % (50.0-68.0) 06/04/18 10:00 Lymph % (Auto) 20.1 % (22.0-35.0) L 06/04/18 10:00 [place] % (Auto) 11.7 % (1.0-6.0) H 06/04/18 10:00 Eos % (Auto) 4.0 % (1.5-5.0) 06/04/18 10:00 Baso % (Auto) 0.1 % (0.0-3.0) 06/04/18 10:00 Lymph # (Auto) 1.5 (1.2-3.4) 06/04/18 10:00 [place] # (Auto) 0.9 (0.1-0.6) H 06/04/18 10:00 Eos # (Auto) 0.3 (0.0-0.7) 06/04/18 10:00 Baso # (Auto) 0.01 K/mm3 (0.0-2.0) 06/04/18 10:00 Absolute Neuts (auto) 4.84 (1.4-6.5) 06/04/18 10:00 PT 14.4 SECONDS (9.4-12.5) H 06/02/18 06:10 INR 1.27 06/02/18 06:10 APTT 34.0 Seconds (26.9-38.3) 06/01/18 06:50 Sodium 139 mmol/L (132-148) 06/05/18 06:30 Potassium 3.7 mmol/L (3.6-5.0) 06/05/18 06:30 Chloride 109 mmol/L (98-107) H 06/05/18 06:30 Carbon Dioxide 24 mmol/L (21-33) 06/05/18 06:30 Anion Gap 10 (10-20) 06/05/18 06:30 BUN 9 mg/dL (7-21) 06/05/18 06:30 Creatinine 0.7 mg/dl (0.8-1.5) L 06/05/18 06:30 Est GFR ( Amer) > 60 06/05/18 06:30 Est GFR (Non-Af Amer) > 60 06/05/18 06:30 Random Glucose 98 mg/dL (70-110) 06/05/18 06:30 Calcium 8.0 mg/dL (8.4-10.5) L 06/05/18 06:30 Phosphorus 2.4 mg/dL (2.5-4.5) L 06/03/18 06:45 Magnesium 2.0 mg/dL (1.7-2.2) 06/03/18 06:45 Total Bilirubin 0.4 mg/dL (0.2-1.3) 06/05/18 06:30 AST 27 U/L (17-59) 06/05/18 06:30 ALT 19 U/L (7-56) 06/05/18 06:30 Alkaline Phosphatase 86 U/L (38-126) 06/05/18 06:30 Total Creatine Kinase 88 U/L (35-230) 05/31/18 15:30 Troponin I < 0.01 ng/mL 05/31/18 15:30 Total Protein 6.4 g/dL (5.8-8.3) 06/05/18 06:30 Albumin 3.1 g/dL (3.0-4.8) 06/05/18 06:30 Globulin 3.3 gm/dL 06/05/18 06:30 Albumin/Globulin Ratio 0.9 (1.1-1.8) L 06/05/18 06:30 Lipase 54 U/L (23-300) 05/31/18 15:30 Urine Color Yellow (YELLOW) 05/31/18 14:40 Urine Appearance Clear (CLEAR) 05/31/18 14:40 Urine pH 6.0 (4.7-8.0) 05/31/18 14:40 Ur Specific [place] 1.025 (1.005-1.035) 05/31/18 14:40 Urine Protein Negative mg/dL (<30 mg/dL) 05/31/18 14:40 Urine Glucose (UA) Negative mg/dL (NEGATIVE) 05/31/18 14:40 Urine Ketones Negative mg/dL (NEGATIVE) 05/31/18 14:40 Urine Blood Negative (NEGATIVE) 05/31/18 14:40 Urine Nitrate Negative (NEGATIVE) 05/31/18 14:40 Urine Bilirubin Negative (NEGATIVE) 05/31/18 14:40 Urine Urobilinogen 0.2 E.U./dL (<1 E.U./dL) 05/31/18 14:40 Ur Leukocyte Esterase Negative Андрей/uL (NEGATIVE) 05/31/18 14:40 Attending/Attestation - Attestation I have personally seen and examined this patient.: Yes I have fully participated in the care of the patient.: Yes I have reviewed all pertinent clinical information, including history, physical exam and plan: Yes Notes (Text): Patient seen and examined by me with resident at approximately 10:15AM and prior to discharge on 06/05/18. Case including discharge plan discussed with resident. Agree with above with following additions/corrections. Patient is a 57-year-old male with past medical history significant for hy perlipidemia that presented to the emergency room with back pain radiating to the abdomen for 5 days. Please see H&P for full details. Patient was found to have cholelithiasis and acute cholecystitis. Patient was seen by surgical team. CT abdomen and pelvis per radiologist showed 2 cm stone in neck of the gallbladder, pericholecystic fluid consistent with cholecystitis. Abdominal ultrasound per radiologist showed large stone in the neck of the gallbladder measuring 2.7 cm in length, thickening of the gallbladder wall measuring 6 mm, fatty infiltration of the liver. Patient had laparoscopic con verted to open subtotal cholecystectomy on 06/02/2018. Drain was placed and removed prior to discharge. Patient had leukocytosis of 11.3 on admission. WBC on discharge was 7.6. Patient was febrile which resolved. Patient was treated with 5 days of IV Rocephin and Flagyl. No more antibiotics needed per surgical team. Wound culture showed no growth. Blood cultures showed no growth. Patient was hypokalemic which resolved with replacement. Patient was tolerating diet. Patient had bowel movement. Patient was ambulating well. Was cleared for discharge by surgical team. Patient was counseled at length on tobacco cessation. Patient was discharged home. On day of discharge, patient stated he was feeling much better. Patient stated abdominal pain was minimal and he was ambulating well. Patient denied any nausea or vomiting. Patient was tolerating diet well. No chest pain. No shortness of breath or palpitations. No headache or change in vision. No fevers or chills. Patient did have a bowel movement. No dysuria. Physical exam: General: Awake and alert sitting up in bed in no acute distress HEENT: Normocephalic, atraumatic. Extraocular muscles intact, pupils equal and reactive, no scleral icterus. Oropharynx is pink and moist. No pharyngeal erythema or exudate appreciated. Neck is supple. Hearing grossly intact. Ears and nose externally unremarkable. Cardiovascular: Regular rhythm. Normal S1 and S2. No murmurs, rubs, or gallops appreciated Pulmonary: Normal respiratory effort. No rhonchi, rales, or wheezing appreciated. Gastrointestinal: Soft, nondistended. Mild tenderness around incision sites. Clean, dry, and intact. Positive bowel sounds all 4 quadrants. No guarding. Musculoskeletal: Moves all extremities. No calf tenderness. No CVA tenderness. No edema appreciated. Central nervous system: AAOx3, CN 2-12 grossly intact. 5/5 muscle strength all extremities. Dermatologic: Skin warm and dry. Please see chart for full details. Follow up instructions: Patient to follow up with primary medical doctor within 3-5 days of discharge. Patient to follow-up with surgeon within one week. Patient to avoid all heavy lifting until seen by surgeon in the office. Patient to wait 48 hours to shower. All instructions explained to the patient in detail. Patient both understands and agrees to all instructions. Written instructions also given. Time spent in discharging the patient including chart review, medication reconciliation, discussion with the patient, medical billing coder, consultants, and nursing staff was approximately 40 minutes.
--- NOTE | 2018-06-14 10:39 | OP ---
PROCEDURE DATE: 06/02/2018 PREOPERATIVE DIAGNOSIS: Acute cholecystitis. POSTOPERATIVE DIAGNOSIS: Acute cholecystitis. PROCEDURE: Laparoscopic cholecystectomy converted to open cholecystectomy. SURGEON: Awais Jordan MD ASSISTANTS: 1. Dr. Rusty Crump, PGY-3. 2. Dr. Esparza, PGY-2. ANESTHESIA ADMINISTERED BY: Dr. Robin. TYPE OF ANESTHESIA: General anesthesia. ESTIMATED BLOOD LOSS: . DESCRIPTION OF PROCEDURE: The patient was taken to the operating room and was placed on the operating table in the supine position. After induction of general anesthesia, the patient was prepped and draped in the usual sterile fashion. A time-out was performed identifying appropriate patient as well as appropriate surgery and appropriate indications, and that all preoperative antibiotics were given after the time-out was performed, and all were in agreement. Attention was turned towards entering the abdomen. A 1 cm supraumbilical incision was made using 11 blade. Dissection was then carried out through the underlying fascia using electrocautery. Fascia was then grabbed with Jason and brought up anteriorly to the incision. The posterior fascia was then entered using 11 blade exposing the peritoneum. Afterward, a Veress needle was inserted and pneumoperitoneum was achieved. The abdomen was allowed to insufflate to a total of 50 mmHg. At this point, the camera was then entered into the abdomen and the underlying bowel was inspected and identified to ensure that there was no iatrogenic enterotomy made upon insertion into the abdomen. Everything appeared normal. The rest of the abdomen was then examined. There was no gross pathology outside, although right upper quadrant of the gallbladder was not immediately visible, but it was clear. The omentum and the colon were stuck up into the right upper quadrant with associated inflammatory changes. The patient was then placed in the reverse Trendelenburg to try to further assist visualization. At this point, we felt it was safe to proceed with trocar placement. Further, 5-mm incisions were made along the subxiphoid using 11 blade. Two other 5-mm incisions were placed along the right upper quadrant. Both 5-mm trocars were inserted under direct visualization. Afterwards, the omentum was then closely dissected down using blunt dissection away from the gallbladder. At this point, we had a clear plane to grasp the infundibulum of the gallbladder with assistance of the retractor. This was then elevated to ipsilateral shoulder, and posteriorly, we are trying to give better exposure of the cystic triangle. Further dissection was needed to bring the transverse colon as well as the associated omentum down and away from the body of the gallbladder. Consistently taking on time with this further identified the appropriate point of dissection. Upon further dissection, the infundibulum of the gallbladder was difficult to retract as the gallbladder was quite inflamed. Given a lack of visualization as well as the lack of progressing and being unable to obtain a safe window of the cystic triangle, at this point, intraoperative decision was made to convert the operation to an open cholecystectomy surgery. At this point, the camera was removed along with the remaining trocars. The abdomen was left insufflated, and using 15-mm blade, a 10-cm Jason incision was made in the right upper quadrant. Dissection was carried down through the muscular layer where electrocautery was used to minimize the bleeding, and care was taken to maintain hemostasis. After the abdomen was entered under direct visualization, the air insufflation was allowed to escape. We then turned our attention to getting appropriate exposure. A Satnam was placed on the gallbladder, and this was elevated superiorly towards the ipsilateral triangle. We then inserted a [place] self-retaining retractor with associated lap pads to protect the underlying bowel to give us appropriate exposure into the cystic triangle. Using a right angle dissector, we were able to circumnavigate the infundibulum as well as the proximal portion of the cystic duct. At this point, there was quite a bit of inflammation noted along the cystic duct which appeared to be in close proximity to the common bile duct. At this point, because of the fact that a safe window was not able to be obtained, the decision was made to carry out a subtotal cholecystectomy. The infundibulum was walked down using a right angle clamp, and then using chromic suture, we passed 2 loops around the lowest portion of the infundibulum, and we were also able to circumnavigate the cystic artery by placing another loop along that. The chromics were then attached to hemostats allowing to drape off the side of the patient, and no structures were cut at this time. We then proceeded with our dissection of the gallbladder down from the fossa. This was initially done with electrocautery, and then once again the appropriate was identified and further carried out with electrodissection. After the gallbladder was completely removed from the liver bed, it was clear that there were only two structures entering the gallbladder; one which was previously identified with the cystic artery and the other cystic duct. Given that there were no additional structures entering the gallbladder, we proceeded with ligating the cystic artery. Again, because of the fact that the short cystic duct was not able to be appropriately circumnavigated, the decision was made to do a subtotal cholecystectomy. At this point, the infundibulum of the gallbladder was transected. We then burned the mucosa of the infundibulum using electrocautery. Afterwards, two chromic sutures were used to close the gallbladder wall defect, and the specimen was then delivered from the field. We then redirected attention back to the abdomen assuring that there was appropriate hemostasis which there was. There was no evidence of any bile leak at this time. The right upper quadrant was irrigated with warm normal saline and then suctioned out. A 15-Citizen Of [place] Jay drain was placed at the right upper quadrant, and then the self-retaining retractor was removed. The closure of the abdomen went as following. The peritoneum was closed in a continuous fashion using 0-Vicryl suture. The posterior fascia was then closed in a continuous fashion using 0 PDS, and the anterior fascia was closed using continuous 0 PDS. Skin was then closed with gabriel. The patient tolerated the procedure well. He was extubated successfully within the operating room and was transferred to PACU in stable condition. Rusty Crump DO Awais Jordan MD
== END 2018-06-05 13:49 | disposition home or self-care (01) | DRG 197 ==
LOC: ED 12:12 → ERH 22:09 → 5RNO 06-01 01:18
PROVIDERS: ADMIT Internal Medicine; ATTEND Internal Medicine
PROC: 0FT40ZZ Resection of Gallbladder, Open Approach (ICD-10-PCS; principal; 2018-06-02 12:00)
PROC: 0FJ44ZZ Inspection of Gallbladder, Percutaneous Endoscopic Approach (ICD-10-PCS; 2018-06-02 12:00)
DX: K80.00 Calculus of gallbladder with acute cholecystitis without obstruction (principal); E87.6 Hypokalemia; K29.70 Gastritis, unspecified, without bleeding; K57.30 Diverticulosis of large intestine without perforation or abscess without bleeding; K40.20 Bilateral inguinal hernia, without obstruction or gangrene, not specified as recurrent; N40.0 Benign prostatic hyperplasia without lower urinary tract symptoms; F17.210 Nicotine dependence, cigarettes, uncomplicated; E78.00 Pure hypercholesterolemia, unspecified; E78.5 Hyperlipidemia, unspecified; K52.9 Noninfective gastroenteritis and colitis, unspecified; Z53.31 Laparoscopic surgical procedure converted to open procedure